=== PATIENT | male | born 2000 | race Caucasian/White ===

== ENCOUNTER 2021-03-20 22:00 | Inpatient (IN) | payer OTHER, MEDICAID, SELFPAY ==
[2021-03-20 22:26] VITALS: BP 141/88; PULSE 77; RESP 18; TEMP 37.1; O2SAT 95; BMI 23.6
--- NOTE | 2021-03-21 00:03 | ED_ITS ---
HPI - Psych General Chief Complaint: Psychiatric Symptoms Stated Complaint: crisis Time Seen by Provider: 03/21/21 00:03 History of Present Illness HPI Narrative: Patient 20 years old hearing voices. Hearing banging sounds. History of schizophrenia. Denies any suicidal homicidal ideations. Patient is sent in for further evaluation. Related Data Allergies Allergy/AdvReac Type Severity Reaction Status Date / Time No Known Allergies Allergy Verified 03/20/21 22:38 [No Known Allergies*] Review of Systems Review of Systems: No fever no chills no chest pain or shortness of breath. No overdose and no alcohol. [facility] Past Medical History Attestation statement: The following information was validated with the patient. Medical History Aggressive behavior Auditory hallucination Disorganized thinking Psychotic disorder Schizophrenia Social History Social History Advance Directives: No Physical Exam Vital Signs: Vital Signs: Last Vital Signs Temp 98.7 F 03/20/21 22:26 Pulse 77 03/20/21 22:26 Resp 18 03/20/21 22:26 BP 141/88 H 03/20/21 22:26 Pulse Ox 95 03/20/21 22:26 Body Mass Index 23.6 Appearance: Alert. Oriented X3. No acute distress. Eyes: Pupils equal, round and reactive to light. ENT: Pharynx normal. Neck: Normal inspection. Neck supple. No lymph nodes noted. No crepitus CVS: Normal heart rate and rhythm. Pulses normal. Normal S1 and S2 Respiratory: No respiratory distress. Breath sounds normal. No Wheezing. No rales Abdomen: Soft and nontender. No rigidity. No distention. good BS x4 Skin: Skin warm and dry. Normal skin color. Normal skin turgor. Extremities: No lower extremity edema. Neurovascular intact to all extremities. No Lacerations. No Rash Neuro: Oriented X 3. No motor deficit. No sensory deficit. Moving all extermities. No slurred speech MDM - Psych MDM Narrative Medical decision making narrative: Medically cleared awaiting crisis evaluation
[2021-03-21 02:00] VITALS: BP 132/55; PULSE 57; RESP 16; TEMP 36.6; O2SAT 96
[2021-03-21 02:01] LABS: Basophils Absolute Auto 0.1 X10*3/uL (0.0-0.2); Basophils Percent Auto 0.9 % (0-2); Eosinophils Absolute Auto 0.1 X10*3/uL (0.0-0.4); Eosinophils Percent Auto 0.9 % (0-4); Hematocrit 42.2 % (42-52); Hemoglobin 14.3 g/dl (14.0-18.0); Imm Gran Abs Auto 0.03 X10*3/uL (0.00-0.03); Imm Gran Pct Auto 0.3 % (0.0-0.4); Lymphocytes Percent Auto 35.5 % (20-40); MANUAL DIFF FLAG NO; Mean Corpuscular HGB Conc 33.9 g/dl (31.0-36.0); Mean Corpuscular Hemoglobin 28.8 pg (27.0-33.0); Mean Corpuscular Volume 85.1 fL (80-98); Mean Platelet Volume 11.6 fL (9.4-12.4); Monocytes Absolute Auto 0.7 X10*3/uL (0.1-1.2); Monocytes Percent Auto 6.3 % (2-11); Neutrophils Absolute Auto 6.3 X10*3/uL (2.0-8.3); Neutrophils Percent Auto 56.1 % (45-73); Platelet Count 288 X10*3/uL (160-400); Red Blood Count 4.96 X10*6/uL (4.60-5.80); White Blood Count 11.2 X10*3/uL (4.8-10.8)
[2021-03-21 02:02] LABS: Glucose Urine UA NEG (NEG); Leukocyte Esterase Urine NEG (NEG); Nitrite Urine NEG (NEG); Specific Gravity - Urine >= 1.030 (1.005-1.025); Urine Blood NEG (NEG); Urine Ketones NEG (NEG); Urine Protein NEG (NEG-TRACE)
[2021-03-21 02:03] LABS: Appearance Urine CLEAR; Color Urine YELLOW
[2021-03-21 02:20] LABS: COVID-19 Test Negative (Negative); IDNOW Serial# 9DD0AD1C
[2021-03-21 02:33] LABS: Amphetamine Screen Urine Not Detected (Not Detect); Barbiturates, Urine Not Detected (Not Detect); Benzodiazepines Screen Urine Not Detected (Not Detect); Cannabinoid Screen Urine POSITIVE (Not Detect); Cocaine Screen Urine Not Detected (Not Detect); Opiate Screen Urine Not Detected (Not Detect); Phencyclidine Screen Urine Not Detected (Not Detect)
[2021-03-21 02:35] LABS: Alanine Aminotransferase 18 U/L (0-40); Albumin Level 4.8 g/dL (3.5-5.0); Alkaline Phosphatase 61 U/L (39-117); Anion Gap 15 (12-20); Aspartate Amino Transferase 22 U/L (5-37); Bilirubin Total 0.5 mg/dL (0.0-1.0); Blood Urea Nitrogen 13 mg/dL (9-16); Carbon Dioxide 25 mmol/L (22-29); Chloride 104 mmol/L (96-108); Creatinine Clr Calc Pharmacy 136.5; Estimated Glomerular Filt Rate > 60; Glucose Random 86 mg/dL (60-115); Potassium 3.9 mmol/L (3.3-5.1); Sodium 140 mmol/L (135-145); Total Protein 7.2 g/dL (6.5-8.0)
[2021-03-21 06:00] VITALS: BP 110/59; PULSE 62; RESP 16; TEMP 36.4; O2SAT 98
--- NOTE | 2021-03-21 06:09 | PC.NURSE ---
This patient presents to the ER at [facility] due to increased aggression at home according to EMS. Pt has remained calm/cooperative since arrival and able to make needs known. Per EMS, pt was seen by [facility] in the community, but then 'ran away from home', where [place] [employer] became involved trying to locate the patient. He then returned home, where his mother called police to have him evaluated by [facility] soon. Pt has hx of schizophrenia, auditory hallucinations, psychotic disorders, and is non-compliant with medications at home. Positive for marijuana on urine toxicology screen with otherwise unremarkable lab results. Plan for N evaluation later today. Section [address], will continue to monitor.
--- NOTE | 2021-03-21 06:27 | PC.NURSE ---
faxed/called to N. Plan to evaluate by N later this morning.
--- NOTE | 2021-03-21 07:51 | PC.NURSE ---
report taken from karla abraham pt here for increased aggression reported by family members, valeria w hx of schizophrenia. pt denies ah per previous shift rn. ambulating around millieu, within behavioral control. awaiting care team whit. sadie.
[2021-03-21 09:41] VITALS: BP 147/81; PULSE 82; RESP 17; TEMP 37.2; O2SAT 97
--- NOTE | 2021-03-21 10:12 | PC.NURSE ---
pt seen by koki bauer, will be sec 12 bed search. continues to pace within millieu, displays some nervous behaviors (wringing corner of kelsy in hand). appears within behavioral control. denies any new c/o.
[2021-03-21] MEDS: Acetaminophen 325 MG TABLET 650 MG PO (12:57)
--- NOTE | 2021-03-21 12:59 | PC.NURSE ---
pt asking for tylenol for headache, tolerating po w/o issue. wctm.
[2021-03-21 17:37] VITALS: BP 128/70; PULSE 98; RESP 17; O2SAT 97
--- NOTE | 2021-03-22 | ECG_ITS ---
Test Reason : MED CLEARANCE Blood Pressure : / mmHG Vent. Rate : 064 BPM Atrial Rate : 064 BPM P-R Int : 154 ms QRS Dur : 110 ms QT Int : 412 ms P-R-T Axes : 051 067 028 degrees QTc Int : 425 ms Normal sinus rhythm Possible Left atrial enlargement Borderline ECG When compared with ECG of 11-OCT-2019 07:32, T wave inversion less evident in Inferior leads Nonspecific T wave abnormality no longer evident in Lateral leads QT has lengthened Referred By: Edith Pryor Electronically Signed By:Shivam Baxter
[2021-03-22 05:26] VITALS: BP 130/68; PULSE 73; RESP 16; TEMP 36.6; O2SAT 99
--- NOTE | 2021-03-22 06:08 | PC.NURSE ---
Patient slept through the night, OOB x 1 for refreshment, no distress observed/reported, VSS, per [facility] patient is on section 12, inpatient Bed search, patient is not any meds at this time, calm and pleasant, will continue to monitor.
--- NOTE | 2021-03-22 06:44 | PC.NURSE ---
Patient's mother called to inquire patient's medication, per mother patient had been off his medication over year and half, pharmacy called, notified that patient was on Resperidone 1 mg at bedtime and Invega Sustenna IM monthly for over year and half ago, patient's psyatrist was Sherrie Tineo
--- NOTE | 2021-03-22 07:19 | PC.NURSE ---
patient appears to remain at rest at present with even unlabored breaths, patient appears in no distress
[2021-03-22 16:15] VITALS: BP 116/66; PULSE 75; TEMP 36.1
--- NOTE | 2021-03-22 23:31 | PC.ADMIT ---
A 20 year old single, white male was [facility] at [facility]15 as a CV following referral from [facility] and [facility]. Pt signed a 3-day notice shortly after arrival to . Pt has two previous psychiatric admissions; pt was admitted to at age 19 years. Pt denies admissions for substances or Etoh. Pt was assessed at [facility] after being taken to hospital by ambulance and police via section 12. [facility] had been called to assess pt in the family home, but pt eloped from family home several times before being found by police. Per pt's family, pt had been decompensating for past week with AH, responding to internal stimulation, bizarre and erratic behavior. Pt had been increasingly aggressive, kicking and banging on swift. A knife was found in pt's room after family photos in home were found with faces scrated out. . Pt slit pillows and broke a TV. Pt reported to this rewriter that there is a lot of chaos in home because he has many siblings; reportedly 9 siblings. Per [facility] report pt blamed the family cat for the scratched photos. Pt has history of treatment for schizophrenia, but currently is not taking medications and has no providers. Pt was calm and cooperative during admission, but tense and guarded. Pt minimized all behaviors that preceded coming to hospital. Pt denied anx/dep, SI/HI, AH/VH. Pt denies Etoh use, says smokes marijuana socially with peers but does not use any other substances. NINO was positive for marijuana. Pt denies medical issues; pt had prolonged QTC in past, EKG done on 03/22/21 was NSR with possible left atrial enlargement, a borderline EKG when compared to 10/11/2019. Nonspecific T wave abnormality no longer evident and QT lengthened. Qywcy-mt-Oizsb done, admitting orders obtained and initial treatment plan done. Pt is resting in room on 15 minute safety checks at this time.
--- NOTE | 2021-03-22 23:56 | PC.NURSE ---
Pt signed 3-day notice shortly after arrival to unit at 1515.
[2021-03-23 00:01] VITALS: BMI 24.4
[2021-03-23 06:00] VITALS: BP 129/60; PULSE 57; RESP 18; TEMP 36.6; O2SAT 99
[2021-03-23 08:36] LABS: Cholesterol 143 mg/dL; HDL Cholesterol 45 mg/dL; LDL Cholesterol Calculated 86 mg/dl; Magnesium 2.2 mg/dL (1.6-2.6); Triglycerides 60 mg/dL
[2021-03-23 08:41] LABS: Estimated Average Glucose 100 mg/dL; Hemoglobin A1c % 5.1 %
[2021-03-23 08:58] LABS: Free T4 (Free Thyroxine) 1.04 ng/dL (0.71-1.85); Thyroid Stimulating Hormone 0.78 uIU/mL (0.32-4.0)
[2021-03-23 09:11] LABS: Folate 14.5 ng/mL (> or = 4.0); Vitamin B12 282 pg/mL (200-900)
--- NOTE | 2021-03-23 14:27 | HO.PSYADMNOT ---
HPI Chief Complaint: SCHIZOPHRENIA Sources of Information: patient interviewed, chart reviewed and crisis/core team assessment reviewed HPI Subjective Notes: Hawkins Warning, Conditional Voluntary and 3 Day Healthcare Proxy: No Guardianship: No Medical Problems Affecting Mental Status: No Narrative: My mom is mad. I was trying to sleep and my brothers were making noise so I got mad. 20 yo male, h/o schizophrenia, off meds for a significant amount of time, admitted for MSE change and behavior change which has frigntenend family and forced a decision that pt will not be able to live at home if he continues to refuse treatment for this illness. Pt reports no issues, just as stated above. Pt to ER with police, decompensating at the home, disorganized, off meds and violent. Care discussed with Carlos Alberto KRAUSE and pt's mother Colleen Flores. Colleen reports pts symptoms are different this time. For the past ~3 months pt has become more agitated-stomping, banging, breaking the TV, angry, stealing things in the home, hoarding items. Most recently, the family was missing a gift of an [employer] knife. They found the knife in pt's room after he had slashed pictures (faces in the pictures), slashed the soft, slashed cereal boxes. 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 The entire family fears him and his anger. Pt has been banging things, he tells family because of the noise but the home is quiet. Pt has been confrontive to his siblings-Colleen reports all nine siblings are very fearful of him, he has been hiding, urinating in the closet when angry with family, leaving the home, walking, picking up cigarette butts, ashes and used tobacco and storing it in his room in Tupperware. Colleen reports sleep, appetite and ADL's are not changed. At baseline, pt is describes as quiet, reserved, easy going, calm. Thus the concern for the significant change. Colleen reports pt was in pt at [facility] and received an injection and was amazingly well . Since the pandemic occurred he has refused the injection and has been in decline. He tells Colleen he hears things in his head and wants them to stop. Colleen reports pt is non-violent by history. Family plans to begin to pursue guardianship and will need assistance. Of note, pt's biological father has schizophrenia and this presentation is very familiar to Colleen. Family knows of no recent known trauma to effect pt's mood or response in this way. Past Psychiatric History: IP: Yakelin-Savanna Williamson OP: CSI Trials: Risperdal, Abilify Medical Evaluation Reviewed: Yes [facility] Medical History (Updated 03/23/21 @ 16:19 by Selina Dudley APRN) Aggressive behavior Auditory hallucination Disorganized thinking Psychotic disorder Schizophrenia Schizophrenia Narrative: Hx of Elbow Injury Family History: Father-Schizophrenia Social History: Born in [place]. Pt has 9 siblings. Pt raised by his mother since age 13. Left school before graduating. Substance History: Denies Trauma History: Denies Diagnostics Vital Signs (24Hr): Vital Signs - 24 hr 03/22/21 16:15 03/23/21 06:00 Temperature 97.0 F 97.9 F Pulse Rate 75 57 Respiratory Rate 18 Blood Pressure 116/66 129/60 Pulse Oximetry 99 Body Mass Index 24.4 Labs Results: 03/21/21 01:50 03/21/21 01:50 Labs: Laboratory Results - last 48 hr 03/23/21 03/23/21 03/23/21 07:46 07:46 07:46 Estimat Average Glucose 100 Hemoglobin A1c % 5.1 Magnesium 2.2 Triglycerides 60 Cholesterol 143 LDL Cholesterol, Calc 86 HDL Cholesterol 45 Vitamin B12 282 Folate 14.5 TSH 0.78 Free T4 1.04 Meds/Allergies Meds Home Medications Acetaminophen (Acetaminophen 325 Mg Tablet) 650 mg PO Q6H PRN PRN Reason: Headache/Pain Mild Scale (1-3) Al Hydroxide/Mg Hydroxide (Magnesium Hydrox/Alum Hydrox 30 Ml Oral.Susp) 30 ml PO Q6H PRN PRN Reason: Heartburn/Nausea Hydroxyzine HCl (Hydroxyzine Hcl 25 Mg Tablet) 25 mg PO BEDTIME PRN PRN Reason: Anxiety Lorazepam (Lorazepam 1 Mg Tablet) 1 mg PO Q4H PRN PRN Reason: anxiety, agitation Magnesium Hydroxide (Milk Of Magnesia 30 Ml Oral.Susp) 30 ml PO DAILY PRN PRN Reason: Constipation Olanzapine (Olanzapine 5 Mg Tablet) 5 mg PO BID PRN PRN Reason: psychosis Trazodone HCl (Trazodone Hcl 50 Mg Tablet) 50 mg PO BEDTIME PRN PRN Reason: Insomnia Allergies Allergies Allergy/AdvReac Type Severity Reaction Status Date / Time No Known Allergies Allergy Verified 03/20/21 22:38 [No Known Allergies*] Mental Status Exam Mental Status Exam Patient Appearance: Appropriate Patient Orientation: Person, Place and Situation Level of Consciousness: Alert Patient Behavior: Guarded, Talkative, Hyperactive, Cooperative, Suspicious, Restless, Wandering, Anxious, Fearful, Resistive to Care, Avoidant, Distractible, Isolative and Poor Eye Contact Mood Description: Calm, Suspicious, Withdrawn, Constricted, Fearful, Anxious, Blunted and Apprehensive Affect Description: Constricted Patient Cognition Impaired: No Ability to Follow Directions: Fair Speech Pattern: Spontaneous Speech, Soft-Spoken and Cofabulation Memory Description: Remote Impaired and Episodic Impaired Hallucinations: Auditory Delusions: Paranoid Ideation and Present Perceptual Disturbances: Derealization Thought Process: Illogical, Distracted and Evasive Thought Content: positive for Flight of Ideas, positive for Thought Blocking, positive for Tangential, positive for Disorganized, positive for Evasive, positive for Suicidal Ideation (denies) and positive for Homicidal Ideation (denies) Depressive Symptoms: Increased Irritability, Isolating-Friends/Family and Difficulty Concentrating Abnormal Motor Activity Signs and Symptoms: Aggression (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 His mother, Colleen reports a significant behavioral change [employer] where he has become more agitated, aggressive, violent and destructive. At this point the family fears him and will not allow him to return to the home unless he is well medicated. Simone reports family is angry as they were making noise while he was attempting to sleep and he responded. Plan: -Simone has signed a three day notice of intent. We discussed HAWKINS warning today. -Labs WNL WBC 11.2 -Per mom, Risperdal was very helpful on last admit. Pt declines all medications, but will order HS Risperdal -Olanzapine prn -Will meet with mother on 03/24 as she will approach the court for guardianship. -Educate, Encourage, [place] building. (2) Acute psychosis: Status: Acute Code(s): F23 - Brief psychotic disorder Patient educated on: medication risk/benefits and therapeutic strategies Informed Consent: does not understand Reason for continued inpatient stay Substantial Risk for: harm to self, harm to others, inability to function and rapid decompensation
[2021-03-23 18:00] VITALS: BP 122/58; PULSE 66; TEMP 36.7
[2021-03-23] MEDS: risperiDONE 1 MG TABLET PO (21:21)
[2021-03-24 06:00] VITALS: BP 97/58; PULSE 63; RESP 16; TEMP 36.6; O2SAT 98
--- NOTE | 2021-03-24 12:44 | HO.PSYCHPN ---
Subjective Subjective Date of Service: 03/24/21 Reason For Visit: SCHIZOPHRENIA Subjective Notes: Conditional Voluntary and 3 Day Healthcare Proxy: No Guardianship: No Medical Problems Affecting Mental Status: No Interim History: Met with pt and mother. 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 Pt reports he did not use a knife to destroy property at home-he believes the cat did this. Discussed schizophrenia, neurobiology, the need for medication and the expected outcome. Discussed pursuit of civil commitment. Pt will consider retraction of TDN. Discussed mother pursuing guardianship on a temporary basis. Pt left the meeting a few times-not angry but highly distracted, returned asking for mom to bring certain foods for him. Agrees to meds. Prefers the DUONG 3 month injection. Will accept Risperdal PO until we have this in place. Medical Certificate completed Medication Compliance: Yes Side effects from medications: No Attending Groups: No Review of Systems Reports behavioral changes Psychiatric: Reports behavioral changes, Reports difficulty concentrating, Reports auditory hallucinations, Reports irritability, Reports mood swings, Reports paranoia, Reports homicidal ideation (denies, however, behaviors BREAK OUT WORKER have family fearful and concerned) and Reports suicidal ideation (denies) Mental Status Exam Mental Status Exam Patient Appearance: Appropriate Patient Orientation: Person and Place Level of Consciousness: Alert Patient Behavior: Dependent, Guarded, Suspicious, Restless, Wandering, Anxious, Fearful, Resistive to Care, Avoidant, Distractible, Isolative and Poor Eye Contact Mood Description: Constricted Affect Description: Constricted Patient Cognition Impaired: No Ability to Follow Directions: Fair Speech Pattern: Difficulty Finding Words, Spontaneous Speech, Soft-Spoken, Cofabulation and Long Pauses Memory Description: Remote Impaired and Episodic Impaired Hallucinations: Auditory and Command Delusions: Paranoid Ideation and Present Perceptual Disturbances: Derealization Thought Process: Illogical, Distracted and Slowed Thinking Thought Content: positive for [place], positive for Circumstantial, positive for Perseveration, positive for Poverty of Content, positive for Preoccupation, positive for Loose Associations, positive for Thought Blocking, positive for Tangential, positive for Suicidal Ideation (denies) and positive for Homicidal Ideation (denies) Depressive Symptoms: Diff. Making Decisions, Increased Irritability, Loss of Int. in Activity, Isolating-Friends/Family, Thoughts of /Suicide (denies) and Difficulty Concentrating Abnormal Motor Activity Signs and Symptoms: Restlessness Judgement: Poor Diagnostics Vital Signs (24Hr): Vital Signs - 24 hr 03/23/21 18:00 03/24/21 06:00 Temperature 98.1 F 97.9 F Pulse Rate 66 63 Respiratory Rate 16 Blood Pressure 122/58 L 97/58 L Pulse Oximetry 98 Body Mass Index 24.4 Labs Results: 03/21/21 01:50 03/21/21 01:50 Labs: Laboratory Results - last 48 hr 03/23/21 03/23/21 03/23/21 07:46 07:46 07:46 Estimat Average Glucose 100 Hemoglobin A1c % 5.1 Magnesium 2.2 Triglycerides 60 Cholesterol 143 LDL Cholesterol, Calc 86 HDL Cholesterol 45 Vitamin B12 282 Folate 14.5 TSH 0.78 Free T4 1.04 Medications Medications Current Medications Generic Name Dose Route Start Last Admin Trade Name Freq PRN Reason Stop Dose Admin Acetaminophen 650 mg 03/22/21 15:10 Acetaminophen 325 Mg Tablet PO Q6H PRN Headache/Pain Mild Scale (1-3) Al Hydroxide/Mg Hydroxide 30 ml 03/22/21 15:10 Magnesium Hydrox/Alum Hydrox 30 Ml Oral.Susp PO Q6H PRN Heartburn/Nausea Hydroxyzine HCl 25 mg 03/22/21 15:10 Hydroxyzine Hcl 25 Mg Tablet PO BEDTIME PRN Anxiety Lorazepam 1 mg 03/22/21 15:29 Lorazepam 1 Mg Tablet PO Q4H PRN anxiety, agitation Magnesium Hydroxide 30 ml 03/22/21 15:10 Milk Of Magnesia 30 Ml Oral.Susp PO DAILY PRN Constipation Olanzapine 5 mg 03/22/21 15:29 Olanzapine 5 Mg Tablet PO BID PRN psychosis Risperidone 1 mg 03/23/21 21:00 03/23/21 21:21 Risperidone 1 Mg Tablet PO 1 mg BEDTIME LUÍS Administration Trazodone HCl 50 mg 03/22/21 15:10 Trazodone Hcl 50 Mg Tablet PO BEDTIME PRN Insomnia Allergies Allergies Allergy/AdvReac Type Severity Reaction Status Date / Time No Known Allergies Allergy Verified 03/20/21 22:38 [No Known Allergies*] Assessment & Plan Assessment & Plan (1) Schizophrenia: Status: Acute Code(s): F20.9 - Schizophrenia, unspecified Assessment and Plan: Simone is a 20 yo male, with a history of schizophrenia, who has been off medications for a significant period of time, partly due to pandemic restrictions. His mother, Colleen reports a significant behavioral change [employer] WORKER where he has become more agitated, aggressive, violent and destructive. At this point the family fears him and will not allow him to return to the home unless he is well medicated. Simone reports family is angry as they were making noise while he was attempting to sleep and he responded. 03/24/21: Family meeting today. Pt to consider retraction of TDN and beginning DUONG-interested in 3 month choices. Mom will file for guardianship. Pending civil commitment filing should pt not agree to a plan of care. Accepting PO Risperdal. Plan: -Simone has signed a three day notice of intent. He is considering retraction -Labs WNL WBC 11.2 -Per mom, Risperdal was very helpful on last admit. Pt accepting po Riserpdal, considering DUONG-asks for 3 month plan -Olanzapine prn -Educate, Encourage, [place] building. (2) Acute psychosis: Status: Acute Code(s): F23 - Brief psychotic disorder Greater than 50% of the session was spent on counseling and/or coordination of care Reason for contiued inpatient stay Substantial Risk for: harm to self, harm to others, inability to function and rapid decompensation
[2021-03-24 18:00] VITALS: BP 129/68; PULSE 104; RESP 16; TEMP 36.6; O2SAT 95
[2021-03-24] MEDS: risperiDONE 1 MG TABLET PO (20:46)
[2021-03-25 06:41] VITALS: BP 120/56; PULSE 60; TEMP 36; O2SAT 97
[2021-03-25 13:38] VITALS: BMI 24.7
--- NOTE | 2021-03-25 16:46 | P.PNPSI_ITS ---
Subjective Subjective Date of Service: 03/25/21 Reason For Visit: SCHIZOPHRENIA Subjective Notes: Conditional Voluntary and 3 Day (Retraction) Healthcare Proxy: No Guardianship: Yes (mom went to court today) Medical Problems Affecting Mental Status: No Interim History: Pt retracted TDN. Pt would like medication to be the three month injectable Trinza. Discussed with pt and mother the steps we would need to take to acheive this-tolerance of PO Risperdal/Invega, Invega Sustenna trial for four (4) months (initially 2 IM's then monthly IM for 4 months) then, if tolerated, Trinza trial q 3 months. Both agree that they would like to proceed. We will change Risperdal to Invega PO 3 mg to begin 03/26/21. Pt pacing much of the day-did approach tw a few times for questions. Mother visited briefly with food for pt however he did not want to meet with her. Pt is clearly responding to internal stimuli and has a decrease of environmental awareness. Review of Systems Reports behavioral changes Psychiatric: Reports behavioral changes, Reports difficulty concentrating, Reports auditory hallucinations, Reports irritability and Reports paranoia Mental Status Exam Mental Status Exam Patient Appearance: Appropriate Patient Orientation: Person, Place, Time and Situation Level of Consciousness: Alert Patient Behavior: Guarded, Cooperative, Suspicious, Restless, Wandering, Anxious, Avoidant, Isolative, Good Eye Contact and Pacing Mood Description: Constricted Affect Description: Constricted Patient Cognition Impaired: Yes Ability to Follow Directions: Fair Speech Pattern: Spontaneous Speech and Soft-Spoken Memory Description: Remote Impaired and Episodic Impaired Hallucinations: Auditory Delusions: Paranoid Ideation and Present Perceptual Disturbances: Derealization Thought Process: Distracted Thought Content: positive for [place], positive for Circumstantial, positive for Preoccupation and positive for Tangential Depressive Symptoms: Increased Irritability and Difficulty Concentrating Abnormal Motor Activity Signs and Symptoms: Restlessness Judgement: Poor Diagnostics Vital Signs (24Hr): Vital Signs - 24 hr 03/24/21 18:00 03/25/21 06:41 Temperature 97.9 F 96.8 F Pulse Rate 104 H 60 Respiratory Rate 16 Blood Pressure 129/68 120/56 L Pulse Oximetry 95 97 Body Mass Index 24.7 Labs Results: 03/21/21 01:50 03/21/21 01:50 Medications Medications Current Medications Generic Name Dose Route Start Last Admin Trade Name Freq PRN Reason Stop Dose Admin Acetaminophen 650 mg 03/22/21 15:10 Acetaminophen 325 Mg Tablet PO Q6H PRN Headache/Pain Mild Scale (1-3) Al Hydroxide/Mg Hydroxide 30 ml 03/22/21 15:10 Magnesium Hydrox/Alum Hydrox 30 Ml Oral.Susp PO Q6H PRN Heartburn/Nausea Hydroxyzine HCl 25 mg 03/22/21 15:10 Hydroxyzine Hcl 25 Mg Tablet PO BEDTIME PRN Anxiety Lorazepam 1 mg 03/22/21 15:29 Lorazepam 1 Mg Tablet PO Q4H PRN anxiety, agitation Magnesium Hydroxide 30 ml 03/22/21 15:10 Milk Of Magnesia 30 Ml Oral.Susp PO DAILY PRN Constipation Olanzapine 5 mg 03/22/21 15:29 Olanzapine 5 Mg Tablet PO BID PRN psychosis Risperidone 2 mg 03/25/21 21:00 Risperidone 2 Mg Tablet PO BEDTIME LUÍS Trazodone HCl 50 mg 03/22/21 15:10 Trazodone Hcl 50 Mg Tablet PO BEDTIME PRN Insomnia Allergies Allergies Allergy/AdvReac Type Severity Reaction Status Date / Time No Known Allergies Allergy Verified 03/20/21 22:38 [No Known Allergies*] Assessment & Plan Assessment & Plan (1) Schizophrenia: Status: Acute Code(s): F20.9 - Schizophrenia, unspecified Assessment and Plan: Simone is a 20 yo male, with a history of schizophrenia, who has been off medications for a significant period of time, partly due to pandemic restrictions. 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 At this point the family fears him and will not allow him to return to the home unless he is well medicated. Simone reports family is angry as they were making noise while he was attempting to sleep and he responded. 03/24/21: Family meeting today. Pt to consider retraction of TDN and beginning DUONG-interested in 3 month choices. Mom will file for guardianship. Pending civil commitment filing should pt not agree to a plan of care. Accepting PO Risperdal. Plan: -Simone has retracted TDN -Labs WNL WBC 11.2 -DC Risperdal. Invega 3 mg a.m. Plan to transition to Sustenna. Pt/Mom aware and agree that he will need to remain on Sustenna for 4 months to be eligible to transtion to 3 month Trinza injection -Olanzapine prn -Educate, Encourage, [place] building. (2) Acute psychosis: Status: Acute Code(s): F23 - Brief psychotic disorder Greater than 50% of the session was spent on counseling and/or coordination of care Reason for contiued inpatient stay Substantial Risk for: harm to self, harm to others, inability to function and rapid decompensation
[2021-03-25 16:50] VITALS: BP 149/71; PULSE 91; TEMP 36.2
[2021-03-26 06:00] VITALS: BP 118/60; PULSE 70; RESP 18; TEMP 35.6; O2SAT 97
[2021-03-26] MEDS: Paliperidone ER 3 MG TAB.ER.24 PO (08:21)
--- NOTE | 2021-03-26 15:51 | HO.PSYCHPN ---
Subjective Subjective Date of Service: 03/26/21 Reason For Visit: SCHIZOPHRENIA Subjective Notes: Conditional Voluntary Healthcare Proxy: No Guardianship: Yes (mom in process of application) Medical Problems Affecting Mental Status: No Interim History: Visable on the unit-pacing. Approached promotion writer x 3 to discuss plan of care, mostly concerning discharge date after injection. Discussed having a few days of PO Invega-if tolerated, will order Sustenna next week (initial two injection over two week period 234 mg on day 1 and 156 mg on day 8 with maintenance dosing starting 4 weeks after second injection. Discussed with pt looking for tolerance of medication, some abatement of sx and family willingness to have him back at home. He verbalized understanding of these goals. Medication Compliance: Yes Side effects from medications: No Attending Groups: No Review of Systems Reports behavioral changes Psychiatric: Reports anxiety, Reports behavioral changes, Reports difficulty concentrating, Reports auditory hallucinations, Reports paranoia and Reports suicidal ideation (denies) Mental Status Exam Mental Status Exam Patient Appearance: Appropriate Patient Orientation: Person, Place, Time and Situation Level of Consciousness: Alert Patient Behavior: Appropriate, Guarded, Cooperative, Suspicious, Anxious, Avoidant, Distractible, Isolative and Poor Eye Contact Mood Description: Constricted Affect Description: Constricted Patient Cognition Impaired: Yes Ability to Follow Directions: Fair Speech Pattern: Perseverating, Difficulty Finding Words, Spontaneous Speech, Soft-Spoken and Long Pauses Memory Description: Episodic Impaired Hallucinations: Auditory Delusions: Paranoid Ideation and Present Perceptual Disturbances: Derealization Thought Process: Distracted Thought Content: positive for Flight [place], positive for Circumstantial, positive for Preoccupation, positive for Tangential, positive for Suicidal Ideation (denies) and positive for Homicidal Ideation (denies) Depressive Symptoms: Increased Anxiety, Diff. Making Decisions, Thoughts of /Suicide (denies) and Difficulty Concentrating Abnormal Motor Activity Signs and Symptoms: Restlessness Judgement: Poor Diagnostics Vital Signs (24Hr): Vital Signs - 24 hr 03/25/21 16:50 03/26/21 06:00 Temperature 97.1 F 96.0 F L Pulse Rate 91 70 Respiratory Rate 18 Blood Pressure 149/71 H 118/60 Pulse Oximetry 97 Body Mass Index 24.7 Labs Results: 03/21/21 01:50 03/21/21 01:50 Medications Medications Current Medications Generic Name Dose Route Start Last Admin Trade Name Freq PRN Reason Stop Dose Admin Acetaminophen 650 mg 03/22/21 15:10 Acetaminophen 325 Mg Tablet PO Q6H PRN Headache/Pain Mild Scale (1-3) Al Hydroxide/Mg Hydroxide 30 ml 03/22/21 15:10 Magnesium Hydrox/Alum Hydrox 30 Ml Oral.Susp PO Q6H PRN Heartburn/Nausea Hydroxyzine HCl 25 mg 03/22/21 15:10 Hydroxyzine Hcl 25 Mg Tablet PO BEDTIME PRN Anxiety Lorazepam 1 mg 03/22/21 15:29 Lorazepam 1 Mg Tablet PO Q4H PRN anxiety, agitation Magnesium Hydroxide 30 ml 03/22/21 15:10 Milk Of Magnesia 30 Ml Oral.Susp PO DAILY PRN Constipation Olanzapine 5 mg 03/22/21 15:29 Olanzapine 5 Mg Tablet PO BID PRN psychosis Paliperidone 3 mg 03/26/21 09:00 03/26/21 08:21 Paliperidone Er 3 Mg Tab.Er.24 PO 3 mg DAILY LUÍS Administration Trazodone HCl 50 mg 03/22/21 15:10 Trazodone Hcl 50 Mg Tablet PO BEDTIME PRN Insomnia Allergies Allergies Allergy/AdvReac Type Severity Reaction Status Date / Time No Known Allergies Allergy Verified 03/20/21 22:38 [No Known Allergies*] Assessment & Plan Assessment & Plan (1) Schizophrenia: Status: Acute Code(s): F20.9 - Schizophrenia, unspecified Assessment and Plan: Simone is a 20 yo male, with a history of schizophrenia, who has been off medications for a significant period of time, partly due to pandemic restrictions. 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 At this point the family fears him and will not allow him to return to the home unless he is well medicated. Simone reports family is angry as they were making noise while he was attempting to sleep and he responded. 03/24/21: Family meeting today. Pt to consider retraction of TDN and beginning DUONG-interested in 3 month choices. Mom will file for guardianship. Pending civil commitment filing should pt not agree to a plan of care. Accepting PO Risperdal. 03/25/21: Continue plan of care. Simone is visable in the milieu and approaches readily to ask questions. 03/26/21: Continue plan of care. Simone is approachable, responding to internal stimuli, continues to have interest and asks questions about plan of care. Mom has initiated the guardianship process. Plan: -Simone has retracted TDN -Labs WNL WBC 11.2 -DC Risperdal. Invega 3 mg a.m. Plan to transition to Sustenna. Pt/Mom aware and agree that he will need to remain on Sustenna for 4 months to be eligible to transtion to 3 month Trinza injection -Olanzapine prn -Educate, Encourage, [place] building. (2) Acute psychosis: Status: Acute Code(s): F23 - Brief psychotic disorder Greater than 50% of the session was spent on counseling and/or coordination of care Reason for contiued inpatient stay Substantial Risk for: harm to self, harm to others, inability to function and rapid decompensation
[2021-03-26 16:58] VITALS: BP 128/65; PULSE 69; RESP 14; TEMP 36.9; O2SAT 96
[2021-03-27 06:00] VITALS: BP 117/56; PULSE 59; RESP 16; TEMP 36.4; O2SAT 98
[2021-03-27] MEDS: Paliperidone ER 3 MG TAB.ER.24 PO (08:18)
[2021-03-27 18:00] VITALS: BP 130/71; PULSE 107
--- NOTE | 2021-03-27 19:03 | P.PNPSI_ITS ---
Subjective Subjective Date of Service: 03/27/21 Reason For Visit: SCHIZOPHRENIA Subjective Notes: Conditional Voluntary Healthcare Proxy: No Guardianship: Yes (pending) Interim History: Showered, visable on the unit. Continues to pace, appears to respond to internal stimuli. Tolerating Invega. Review of Systems Reports behavioral changes Psychiatric: Reports behavioral changes, Reports difficulty concentrating, Reports auditory hallucinations and Reports paranoia Mental Status Exam Mental Status Exam Patient Appearance: Appropriate Patient Orientation: Person, Place, Time and Situation Level of Consciousness: Awake and Alert Patient Behavior: Guarded, Cooperative and Suspicious Mood Description: Constricted Affect Description: Constricted Patient Cognition Impaired: Yes Ability to Follow Directions: Good Speech Pattern: Spontaneous Speech and Soft-Spoken Memory Description: Remote Impaired and Episodic Impaired Hallucinations: Auditory Delusions: Paranoid Ideation and Present Perceptual Disturbances: Derealization Thought Process: Distracted Thought Content: positive for Circumstantial, positive for Perseveration, positive for Preoccupation and positive for Tangential Abnormal Motor Activity Signs and Symptoms: Restlessness Judgement: Poor Diagnostics Vital Signs (24Hr): Vital Signs - 24 hr 03/27/21 06:00 03/27/21 18:00 Temperature 97.6 F Pulse Rate 59 107 H Respiratory Rate 16 Blood Pressure 117/56 L 130/71 Pulse Oximetry 98 Body Mass Index 24.7 Labs Results: 03/21/21 01:50 03/21/21 01:50 Medications Medications Current Medications Generic Name Dose Route Start Last Admin Trade Name Freq PRN Reason Stop Dose Admin Acetaminophen 650 mg 03/22/21 15:10 Acetaminophen 325 Mg Tablet PO Q6H PRN Headache/Pain Mild Scale (1-3) Al Hydroxide/Mg Hydroxide 30 ml 03/22/21 15:10 Magnesium Hydrox/Alum Hydrox 30 Ml Oral.Susp PO Q6H PRN Heartburn/Nausea Hydroxyzine HCl 25 mg 03/22/21 15:10 Hydroxyzine Hcl 25 Mg Tablet PO BEDTIME PRN Anxiety Lorazepam 1 mg 03/22/21 15:29 Lorazepam 1 Mg Tablet PO Q4H PRN anxiety, agitation Magnesium Hydroxide 30 ml 03/22/21 15:10 Milk Of Magnesia 30 Ml Oral.Susp PO DAILY PRN Constipation Olanzapine 5 mg 03/22/21 15:29 Olanzapine 5 Mg Tablet PO BID PRN psychosis Paliperidone 3 mg 03/26/21 09:00 03/27/21 08:18 Paliperidone Er 3 Mg Tab.Er.24 PO 3 mg DAILY LUÍS Administration Trazodone HCl 50 mg 03/22/21 15:10 Trazodone Hcl 50 Mg Tablet PO BEDTIME PRN Insomnia Allergies Allergies Allergy/AdvReac Type Severity Reaction Status Date / Time No Known Allergies Allergy Verified 03/20/21 22:38 [No Known Allergies*] Assessment & Plan Assessment & Plan (1) Schizophrenia: Status: Acute Code(s): F20.9 - Schizophrenia, unspecified Assessment and Plan: Simone is a 20 yo male, with a history of schizophrenia, who has been off medications for a significant period of time, partly due to pandemic restrictions. 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 At this point the family fears him and will not allow him to return to the home unless he is well medicated. Simone reports family is angry as they were making noise while he was attempting to sleep and he responded. 03/24/21: Family meeting today. Pt to consider retraction of TDN and beginning DUONG-interested in 3 month choices. Mom will file for guardianship. Pending civil commitment filing should pt not agree to a plan of care. Accepting PO Risperdal. 03/25/21: Continue plan of care. Simone is visable in the milieu and approaches readily to ask questions. 03/26/21: Continue plan of care. Simone is approachable, responding to internal stimuli, continues to have interest and asks questions about plan of care. Mom has initiated the guardianship process. Plan: -Simone has retracted TDN -Labs WNL WBC 11.2 -DC Risperdal. Invega 3 mg a.m. Plan to transition to Sustenna. Pt/Mom aware and agree that he will need to remain on Sustenna for 4 months to be eligible to transtion to 3 month Trinza injection -Olanzapine prn -Educate, Encourage, [place] building. (2) Acute psychosis: Status: Acute Code(s): F23 - Brief psychotic disorder Greater than 50% of the session was spent on counseling and/or coordination of care Reason for contiued inpatient stay Substantial Risk for: harm to self, harm to others, inability to function and rapid decompensation
[2021-03-28 06:00] VITALS: BP 101/55; PULSE 62; RESP 16; TEMP 36.6; O2SAT 95
[2021-03-28] MEDS: Paliperidone ER 3 MG TAB.ER.24 PO (08:03)
[2021-03-28 17:37] VITALS: BP 116/55; PULSE 81; TEMP 36.3; O2SAT 95
--- NOTE | 2021-03-28 17:54 | P.PNPSI_ITS ---
Subjective Subjective Date of Service: 03/28/21 Reason For Visit: SCHIZOPHRENIA Subjective Notes: Conditional Voluntary Healthcare Proxy: No Guardianship: Yes (pending) Medical Problems Affecting Mental Status: No Interim History: Tolerating Invega, denies side effects. Continues to pace, toda y bouncing a ball. Improved eye contact, some increase in interaction with team, peers. Continues to loos anxious. More approachable today Medication Compliance: Yes Side effects from medications: No Attending Groups: No Review of Systems Reports behavioral changes Psychiatric: Reports behavioral changes and Reports paranoia Mental Status Exam Mental Status Exam Patient Appearance: Appropriate Patient Orientation: Person, Place, Time and Situation Level of Consciousness: Alert Patient Behavior: Appropriate, Guarded, Cooperative, Suspicious, Restless, Anxious, Avoidant and Distractible Mood Description: Withdrawn Affect Description: Withdrawn Patient Cognition Impaired: No Ability to Follow Directions: Good Speech Pattern: Spontaneous Speech Memory Description: Episodic Impaired Hallucinations: Auditory Delusions: Paranoid Ideation and Present Thought Process: Distracted Thought Content: positive for [place], positive for Circumstantial and positive for Suicidal Ideation (denies) Depressive Symptoms: Increased Anxiety and Low Self Esteem Judgement: Poor Diagnostics Vital Signs (24Hr): Vital Signs - 24 hr 03/27/21 18:00 03/28/21 06:00 03/28/21 17:37 Temperature 97.9 F 97.4 F Pulse Rate 107 H 62 81 Respiratory Rate 16 Blood Pressure 130/71 101/55 L 116/55 L Pulse Oximetry 95 95 Body Mass Index 24.7 Labs Results: 03/21/21 01:50 03/21/21 01:50 Medications Medications Current Medications Generic Name Dose Route Start Last Admin Trade Name Kylerq PRN Reason Stop Dose Admin Acetaminophen 650 mg 03/22/21 15:10 Acetaminophen 325 Mg Tablet PO Q6H PRN Headache/Pain Mild Scale (1-3) Al Hydroxide/Mg Hydroxide 30 ml 03/22/21 15:10 Magnesium Hydrox/Alum Hydrox 30 Ml Oral.Susp PO Q6H PRN Heartburn/Nausea Hydroxyzine HCl 25 mg 03/22/21 15:10 Hydroxyzine Hcl 25 Mg Tablet PO BEDTIME PRN Anxiety Lorazepam 1 mg 03/22/21 15:29 Lorazepam 1 Mg Tablet PO Q4H PRN anxiety, agitation Magnesium Hydroxide 30 ml 03/22/21 15:10 Milk Of Magnesia 30 Ml Oral.Susp PO DAILY PRN Constipation Olanzapine 5 mg 03/22/21 15:29 Olanzapine 5 Mg Tablet PO BID PRN psychosis Paliperidone 3 mg 03/26/21 09:00 03/28/21 08:03 Paliperidone Er 3 Mg Tab.Er.24 PO 3 mg DAILY LUÍS Administration Trazodone HCl 50 mg 03/22/21 15:10 Trazodone Hcl 50 Mg Tablet PO BEDTIME PRN Insomnia Allergies Allergies Allergy/AdvReac Type Severity Reaction Status Date / Time No Known Allergies Allergy Verified 03/20/21 22:38 [No Known Allergies*] Assessment & Plan Assessment & Plan (1) Schizophrenia: Status: Acute Code(s): F20.9 - Schizophrenia, unspecified Assessment and Plan: Simoen is a 20 yo male, with a history of schizophrenia, who has been off medications for a significant period of time, partly due to pandemic r estrictions. 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 At this point the family fears him and will not allow him to return to the home unless he is well medicated. Simone reports family is angry as they were making noise while he was attempting to sleep and he responded. 03/24/21: Family meeting today. Pt to consider retraction of TDN and beginning DUONG-interested in 3 month choices. Mom will file for guardianship. Pending civil commitment filing should pt not agree to a plan of care. Accepting PO Risperdal. 03/25/21: Continue plan of care. Simone is visable in the milieu and approaches readily to ask questions. 03/26/21: Continue plan of care. Simone is approachable, responding to internal stimuli, continues to have interest and asks questions about plan of care. Mom has initiated the guardianship process. Plan: -Simone has retracted TDN -Labs WNL WBC 11.2 -DC Risperdal. Invega 3 mg a.m. Plan to transition to Sustenna. Pt/Mom aware and agree that he will need to remain on Sustenna for 4 months to be eligible to transtion to 3 month Trinza injection -Olanzapine prn -Educate, Encourage, [place] building. (2) Acute psychosis: Status: Acute Code(s): F23 - Brief psychotic disorder Greater than 50% of the session was spent on counseling and/or coordination of care Reason for contiued inpatient stay Substantial Risk for: harm to self, harm to others, inability to function and rapid decompensation
[2021-03-29 06:00] VITALS: BP 120/59; PULSE 56; RESP 14; TEMP 36.7; O2SAT 99
[2021-03-29] MEDS: Paliperidone ER 3 MG TAB.ER.24 PO (08:35)
--- NOTE | 2021-03-29 12:31 | HO.PSYCHPN ---
Subjective Subjective Date of Service: 03/29/21 Reason For Visit: SCHIZOPHRENIA Interim History: pt seen shortly after he showering, appeared well-related. denied any questions or concerns. stated everything was going well for him currently and he has no problems. per staff, pt has been active and appropriate on the unit. he is guarded and avoidant. isolative, walking the halls. slept most of the overnight shift. Mental Status Exam Mental Status Exam Narrative: appropriately dressed and groomed. cooperative, no PMA/PMR. speech nml in amount, rate, loudness, prosody, latency. thoughts linear and logical in brief interview. affect constricted, appropriate to circumstance, non-labile. no SI/HI/AVH expressed. Diagnostics Vital Signs (24Hr): Vital Signs - 24 hr 03/28/21 17:37 03/29/21 06:00 Temperature 97.4 F 98.1 F Pulse Rate 81 56 Respiratory Rate 14 Blood Pressure 116/55 L 120/59 L Pulse Oximetry 95 99 Body Mass Index 24.7 Labs Results: 03/21/21 01:50 03/21/21 01:50 Medications Medications Current Medications Generic Name Dose Route Start Last Admin Trade Name Freq PRN Reason Stop Dose Admin Acetaminophen 650 mg 03/22/21 15:10 Acetaminophen 325 Mg Tablet PO Q6H PRN Headache/Pain Mild Scale (1-3) Al Hydroxide/Mg Hydroxide 30 ml 03/22/21 15:10 Magnesium Hydrox/Alum Hydrox 30 Ml Oral.Susp PO Q6H PRN Heartburn/Nausea Hydroxyzine HCl 25 mg 03/22/21 15:10 Hydroxyzine Hcl 25 Mg Tablet PO BEDTIME PRN Anxiety Lorazepam 1 mg 03/22/21 15:29 Lorazepam 1 Mg Tablet PO Q4H PRN anxiety, agitation Magnesium Hydroxide 30 ml 03/22/21 15:10 Milk Of Magnesia 30 Ml Oral.Susp PO DAILY PRN Constipation Olanzapine 5 mg 03/22/21 15:29 Olanzapine 5 Mg Tablet PO BID PRN psychosis Paliperidone 3 mg 03/26/21 09:00 03/29/21 08:35 Paliperidone Er 3 Mg Tab.Er.24 PO 3 mg DAILY LUÍS Administration Trazodone HCl 50 mg 03/22/21 15:10 Trazodone Hcl 50 Mg Tablet PO BEDTIME PRN Insomnia Allergies Allergies Allergy/AdvReac Type Severity Reaction Status Date / Time No Known Allergies Allergy Verified 03/20/21 22:38 [No Known Allergies*] Assessment & Plan Assessment & Plan (1) Schizophrenia: Status: Acute Code(s): F20.9 - Schizophrenia, unspecified Assessment and Plan: Simone is a 20 yo male, with a history of schizophrenia, who has been off medications for a significant period of time, partly due to pandemic restrictions. 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 At this point the family fears him and will not allow him to return to the home unless he is well medicated. Simone reports family is angry as they were making noise while he was attempting to sleep and he responded. 03/24/21: Family meeting today. Pt to consider retraction of TDN and beginning DUONG-interested in 3 month choices. Mom will file for guardianship. Pending civil commitment filing should pt not agree to a plan of care. Accepting PO Risperdal. 03/25/21: Continue plan of care. Simone is visable in the milieu and approaches readily to ask questions. 03/26/21: Continue plan of care. Simone is approachable, responding to internal stimuli, continues to have interest and asks questions about plan of care. Mom has initiated the guardianship process. 03/29/21: no substantial change in presentation. Plan: -Simone has retracted TDN -Labs WNL WBC 11.2 -DC Risperdal. Invega 3 mg a.m. Plan to transition to Sustenna. Pt/Mom aware and agree that he will need to remain on Sustenna for 4 months to be eligible to transtion to 3 month Trinza injection -Olanzapine prn -Educate, Encourage, [place] building. (2) Acute psychosis: Status: Acute Code(s): F23 - Brief psychotic disorder Greater than 50% of the session was spent on counseling and/or coordination of care Reason for contiued inpatient stay Substantial Risk for: harm to others, inability to function and rapid decompensation
[2021-03-29 16:25] VITALS: BP 136/63; PULSE 73; TEMP 36.9
[2021-03-30 06:50] VITALS: BP 106/52; PULSE 70; RESP 16; TEMP 36.1; O2SAT 97
[2021-03-30] MEDS: Paliperidone ER 3 MG TAB.ER.24 PO (08:25)
--- NOTE | 2021-03-30 17:59 | P.PNPSI_ITS ---
Subjective Subjective Date of Service: 03/30/21 Reason For Visit: SCHIZOPHRENIA Subjective Notes: Conditional Voluntary Healthcare Proxy: No Guardianship: Yes (mother is in process) Medical Problems Affecting Mental Status: No Interim History: Simone reports no adverse effects from medication. We discussed beginning Sustenna and he feels ready to do this. Telephone contact with pt's mother who is in agreement as well. Medication Compliance: Yes Side effects from medications: No Attending Groups: No (No, they are stupid.) Review of Systems Reports behavioral changes Psychiatric: Reports anxiety, Reports behavioral changes, Reports difficulty concentrating, Reports auditory hallucinations, Reports irritability, Reports mood swings, Reports paranoia and Reports suicidal ideation (denies) Mental Status Exam Mental Status Exam Patient Appearance: Appropriate Patient Orientation: Person, Place, Time and Situation Level of Consciousness: Alert Patient Behavior: Appropriate, Guarded, Cooperative, Passive, Suspicious, Restless, Wandering, Anxious, Fearful, Avoidant, Distractible, Isolative, Pacing and Poor Eye Contact Mood Description: Suspicious, Withdrawn, Appropriate, Constricted, Fearful, Anxious, Blunted and Apprehensive Affect Description: Constricted Patient Cognition Impaired: No Ability to Follow Directions: Good Speech Pattern: Perseverating, Spontaneous Speech, Soft-Spoken and Long Pauses Memory Description: Remote Impaired and Episodic Impaired Hallucinations: Auditory Delusions: Paranoid Ideation and Present Perceptual Disturbances: Derealization Thought Process: Distracted and Evasive Thought Content: positive for Circumstantial, positive for Perseveration, positive for Preoccupation, positive for Thought Blocking and positive for Evasive Depressive Symptoms: Increased Anxiety, Diff. Making Decisions, Increased Irritability and Difficulty Concentrating Abnormal Motor Activity Signs and Symptoms: Restlessness Judgement: Poor Diagnostics Vital Signs (24Hr): Vital Signs - 24 hr 03/30/21 06:50 Temperature 96.9 F Pulse Rate 70 Respiratory Rate 16 Blood Pressure 106/52 L Pulse Oximetry 97 Body Mass Index 24.7 Labs Results: 03/21/21 01:50 03/21/21 01:50 Medications Medications Current Medications Generic Name Dose Route Start Last Admin Trade Name Freq PRN Reason Stop Dose Admin Acetaminophen 650 mg 03/22/21 15:10 Acetaminophen 325 Mg Tablet PO Q6H PRN Headache/Pain Mild Scale (1-3) Al Hydroxide/Mg Hydroxide 30 ml 03/22/21 15:10 Magnesium Hydrox/Alum Hydrox 30 Ml Oral.Susp PO Q6H PRN Heartburn/Nausea Hydroxyzine HCl 25 mg 03/22/21 15:10 Hydroxyzine Hcl 25 Mg Tablet PO BEDTIME PRN Anxiety Lorazepam 1 mg 03/22/21 15:29 Lorazepam 1 Mg Tablet PO Q4H PRN anxiety, agitation Magnesium Hydroxide 30 ml 03/22/21 15:10 Milk Of Magnesia 30 Ml Oral.Susp PO DAILY PRN Constipation Olanzapine 5 mg 03/22/21 15:29 Olanzapine 5 Mg Tablet PO BID PRN psychosis Paliperidone Palmitate 234 mg 03/31/21 08:00 Paliperidone Palmitate 234 Mg/1.5 Ml Syringe IM 03/31/21 08:01 ONCE ONE Paliperidone Palmitate 156 mg 04/08/21 08:00 Paliperidone Palmitate 156 Mg/Ml Syringe IM 04/08/21 08:01 ONCE ONE Trazodone HCl 50 mg 03/22/21 15:10 Trazodone Hcl 50 Mg Tablet PO BEDTIME PRN Insomnia Allergies Allergies Allergy/AdvReac Type Severity Reaction Status Date / Time No Known Allergies Allergy Verified 03/20/21 22:38 [No Known Allergies*] Assessment & Plan Assessment & Plan (1) Schizophrenia: Status: Acute Code(s): F20.9 - Schizophrenia, unspecified Assessment and Plan: Simone is a 20 yo male, with a history of schizophrenia, who has been off medications for a significant period of time, partly due to pandemic restrictions. 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 At this point the family fears him and will not allow him to return to the home unless he is well medicated. Simone reports family is angry as they were making noise while he was attempting to sleep and he responded. 03/24/21: Family meeting today. Pt to consider retraction of TDN and beginning DUONG-interested in 3 month choices. Mom will file for guardianship. Pending civil commitment filing should pt not agree to a plan of care. Accepting PO Risperdal. 03/25/21: Continue plan of care. Simone is visable in the milieu and approaches readily to ask questions. 03/26/21: Continue plan of care. Simone is approachable, responding to internal stimuli, continues to have interest and asks questions about plan of care. Mom has initiated the guardianship process. 03/29/21: no substantial change in presentation. 03/30/21: Tolerating medications. Will begin Invega Sustenna 234 mg on 03/31. Pt and mother agree. Plan: -Simone has retracted TDN -Labs WNL WBC 11.2 -DC Risperdal. Invega 3 mg a.m. Plan to transition to Sustenna. Pt/Mom aware and agree that he will need to remain on Sustenna for 4 months to be eligible to transtion to 3 month Trinza injection -Olanzapine prn -Educate, Encourage, [place] building. (2) Acute psychosis: Status: Acute Code(s): F23 - Brief psychotic disorder Greater than 50% of the session was spent on counseling and/or coordination of care Reason for contiued inpatient stay Substantial Risk for: harm to others, inability to function and rapid decomp ensation
[2021-03-30 20:35] VITALS: BP 135/63; PULSE 97; TEMP 36.7
[2021-03-31] MEDS: Paliperidone Palmitate 234 MG/1.5 ML SYRINGE IM (08:08)
[2021-03-31 08:25] VITALS: BP 130/56; PULSE 64; RESP 14; TEMP 36.5; O2SAT 98
[2021-03-31] MEDS: Acetaminophen 325 MG TABLET 650 MG PO ×2 (10:13→23:47)
--- NOTE | 2021-03-31 17:30 | HO.PSYCHPN ---
Subjective Subjective Date of Service: 03/31/21 Reason For Visit: SCHIZOPHRENIA Subjective Notes: Conditional Voluntary Healthcare Proxy: No Guardianship: Yes (pending) Medical Problems Affecting Mental Status: No Interim History: Simone received Sustenna Injection 1 today. He reports it was painful and asks if they can rotate the site next week for injection 2. States Tylenol prn helped. Declined cold pack. Reflected upon accepting the injection- this is a hard thing to have-I am not like everybody else and that hurts sometimes. I hope this will make me more like everybody else. I want to have fun. Attempted to educate, reassure and support pt in his desicion that this is an attempt to bring life options to him vs the isolation of illness. I want to go home after the second shot. Medication Compliance: Yes Side effects from medications: No Attending Groups: No (believes they are stupid) Review of Systems Reports behavioral changes Psychiatric: Reports anxiety, Reports behavioral changes, Reports difficulty concentrating, Reports auditory hallucinations, Reports irritability, Reports mood swings, Reports paranoia and Reports visual hallucinations Mental Status Exam Mental Status Exam Patient Appearance: Appropriate Patient Orientation: Person, Place and Situation Level of Consciousness: Alert Patient Behavior: Guarded, Talkative, Cooperative, Suspicious, Restless (rested today, less time seen pacing), Anxious, Fearful, Avoidant, Distractible, Isolative and Good Eye Contact Mood Description: Calm, Withdrawn, Constricted, Fearful, Anxious and Apprehensive Affect Description: Constricted Patient Cognition Impaired: No Ability to Follow Directions: Good Speech Pattern: Perseverating, Spontaneous Speech and Soft-Spoken Memory Description: Remote Impaired and Episodic Impaired Hallucinations: Auditory Delusions: Paranoid Ideation and Present Perceptual Disturbances: Derealization Thought Process: Distracted Thought Content: positive for [place], positive for Circumstantial, positive for Goal Oriented, positive for Suicidal Ideation (denies) and positive for Homicidal Ideation (denies) Depressive Symptoms: Increased Anxiety, Increased Irritability and Isolating-Friends/Family Abnormal Motor Activity Signs and Symptoms: Restlessness Judgement: Poor Diagnostics Vital Signs (24Hr): Vital Signs - 24 hr 03/30/21 20:35 03/31/21 08:25 Temperature 98.0 F 97.7 F Pulse Rate 97 64 Respiratory Rate 14 Blood Pressure 135/63 130/56 L Pulse Oximetry 98 Body Mass Index 24.7 Labs Results: 03/21/21 01:50 03/21/21 01:50 Medications Medications Current Medications Generic Name Dose Route Start Last Admin Trade Name Freq PRN Reason Stop Dose Admin Acetaminophen 650 mg 03/22/21 15:10 03/31/21 10:13 Acetaminophen 325 Mg Tablet PO 650 mg Q6H PRN Administration Headache/Pain Mild Scale (1-3) Al Hydroxide/Mg Hydroxide 30 ml 03/22/21 15:10 Magnesium Hydrox/Alum Hydrox 30 Ml Oral.Susp PO Q6H PRN Heartburn/Nausea Hydroxyzine HCl 25 mg 03/22/21 15:10 Hydroxyzine Hcl 25 Mg Tablet PO BEDTIME PRN Anxiety Lorazepam 1 mg 03/22/21 15:29 Lorazepam 1 Mg Tablet PO Q4H PRN anxiety, agitation Magnesium Hydroxide 30 ml 03/22/21 15:10 Milk Of Magnesia 30 Ml Oral.Susp PO DAILY PRN Constipation Olanzapine 5 mg 03/22/21 15:29 Olanzapine 5 Mg Tablet PO BID PRN psychosis Paliperidone Palmitate 156 mg 04/08/21 08:00 Paliperidone Palmitate 156 Mg/Ml Syringe IM 04/08/21 08:01 ONCE ONE Trazodone HCl 50 mg 03/22/21 15:10 Trazodone Hcl 50 Mg Tablet PO BEDTIME PRN Insomnia Allergies Allergies Allergy/AdvReac Type Severity Reaction Status Date / Time No Known Allergies Allergy Verified 03/20/21 22:38 [No Known Allergies*] Assessment & Plan Assessment & Plan (1) Schizophrenia: Status: Acute Code(s): F20.9 - Schizophrenia, unspecified Assessment and Plan: Simone is a 20 yo male, with a history of schizophrenia, who has been off medications for a significant period of time, partly due to pandemic restrictions. 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 At this point the family fears him and will not allow him to return to the home unless he is well medicated. Simone reports family is angry as they were making noise while he was attempting to sleep and he responded. 03/24/21: Family meeting today. Pt to consider retraction of TDN and beginning DUONG-interested in 3 month choices. Mom will file for guardianship. Pending civil commitment filing should pt not agree to a plan of care. Accepting PO Risperdal. 03/25/21: Continue plan of care. Simone is visable in the milieu and approaches readily to ask questions. 03/26/21: Continue plan of care. Simone is approachable, responding to internal stimuli, continues to have interest and asks questions about plan of care. Mom has initiated the guardianship process. 03/29/21: no substantial change in presentation. 03/30/21: Tolerating medications. Will begin Invega Sustenna 234 mg on 03/31. Pt and mother agree. 03/31/21: Sustenna received. Tolerating dosing thus far. Plan: -DC Risperdal. Invega 3 mg a.m. Plan to transition to Sustenna. Pt/Mom aware and agree that he will need to remain on Sustenna for 4 months to be eligible to transtion to 3 month Trinza injection -Olanzapine prn -Educate, Encourage, [place] building. (2) Acute psychosis: Status: Acute Code(s): F23 - Brief psychotic disorder Greater than 50% of the session was spent on counseling and/or coordination of care Reason for contiued inpatient stay Substantial Risk for: harm to self, harm to others, inability to function and rapid decompensation
[2021-03-31 18:00] VITALS: BP 126/74; PULSE 74; RESP 16; TEMP 36.1
[2021-04-01 06:00] VITALS: BP 132/68; PULSE 99; TEMP 36.3; O2SAT 97
[2021-04-01 07:00] VITALS: BMI 25.2
--- NOTE | 2021-04-01 12:00 | ECG_ITS ---
Test Reason : DUONG USE Blood Pressure : / mmHG Vent. Rate : 065 BPM Atrial Rate : 065 BPM P-R Int : 168 ms QRS Dur : 116 ms QT Int : 398 ms P-R-T Axes : 048 062 016 degrees QTc Int : 413 ms Normal sinus rhythm Normal ECG When compared with ECG of 22-MAR-2021 13:23, No significant change was found Referred By: Selina Dudley Electronically Signed By:BOONE JAMES MD
--- NOTE | 2021-04-01 12:12 | P.PNPSI_ITS ---
Subjective Subjective Date of Service: 04/01/21 Reason For Visit: SCHIZOPHRENIA Subjective Notes: Conditional Voluntary Healthcare Proxy: No Guardianship: Yes (in process) Medical Problems Affecting Mental Status: No Interim History: Continues with pain at injection site. Using prn Tylenol. Asking about second injection and options for site placement. Medication Compliance: Yes Side effects from medications: Yes (injection site soreness-states by hx it is sore for 3-4 days.) Attending Groups: No Review of Systems Reports behavioral changes Psychiatric: Reports behavioral changes, Reports homicidal ideation (denies) and Reports suicidal ideation (denies) Mental Status Exam Mental Status Exam Patient Appearance: Appropriate Patient Orientation: Person, Place, Time and Situation Level of Consciousness: Alert Patient Behavior: Appropriate, Guarded, Talkative, Cooperative, Suspicious, Anxious and Good Eye Contact Mood Description: Withdrawn and Anxious Affect Description: Anxious Patient Cognition Impaired: Yes Ability to Follow Directions: Good Speech Pattern: Spontaneous Speech and Soft-Spoken Memory Description: Episodic Impaired Hallucinations: Auditory Delusions: Paranoid Ideation Thought Process: Distracted Thought Content: positive for Circumstantial, positive for Perseveration, positive for Thought Blocking and positive for Suicidal Ideation (denies) Depressive Symptoms: Increased Anxiety and Difficulty Concentrating Judgement: Poor Diagnostics Vital Signs (24Hr): Vital Signs - 24 hr 03/31/21 18:00 04/01/21 06:00 Temperature 97 F 97.3 F Pulse Rate 74 99 Respiratory Rate 16 Blood Pressure 126/74 132/68 Pulse Oximetry 97 Body Mass Index 25.2 Labs Results: 03/21/21 01:50 03/21/21 01:50 Medications Medications Current Medications Generic Name Dose Route Start Last Admin Trade Name Kylerq PRN Reason Stop Dose Admin Acetaminophen 650 mg 03/22/21 15:10 03/31/21 23:47 Acetaminophen 325 Mg Tablet PO 650 mg Q6H PRN Administration Headache/Pain Mild Scale (1-3) Al Hydroxide/Mg Hydroxide 30 ml 03/22/21 15:10 Magnesium Hydrox/Alum Hydrox 30 Ml Oral.Susp PO Q6H PRN Heartburn/Nausea Hydroxyzine HCl 25 mg 03/22/21 15:10 Hydroxyzine Hcl 25 Mg Tablet PO BEDTIME PRN Anxiety Lorazepam 1 mg 03/22/21 15:29 Lorazepam 1 Mg Tablet PO Q4H PRN anxiety, agitation Magnesium Hydroxide 30 ml 03/22/21 15:10 Milk Of Magnesia 30 Ml Oral.Susp PO DAILY PRN Constipation Olanzapine 5 mg 03/22/21 15:29 Olanzapine 5 Mg Tablet PO BID PRN psychosis Paliperidone Palmitate 156 mg 04/08/21 08:00 Paliperidone Palmitate 156 Mg/Ml Syringe IM 04/08/21 08:01 ONCE ONE Trazodone HCl 50 mg 03/22/21 15:10 Trazodone Hcl 50 Mg Tablet PO BEDTIME PRN Insomnia Allergies Allergies Allergy/AdvReac Type Severity Reaction Status Date / Time No Known Allergies Allergy Verified 03/20/21 22:38 [No Known Allergies*] Assessment & Plan Assessment & Plan (1) Schizophrenia: Status: Acute Code(s): F20.9 - Schizophrenia, unspecified Assessment and Plan: Simone is a 20 yo male, with a history of schizophrenia, who has been off medications for a significant period of time, partly due to pandemic restrictions. 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 At this point the family fears him and will not allow him to return to the home unless he is well medicated. Simone reports family is angry as they were making noise while he was attempting to sleep and he responded. 03/24/21: Family meeting today. Pt to consider retraction of TDN and beginning DUONG-interested in 3 month choices. Mom will file for guardianship. Pending civil commitment filing should pt not agree to a plan of care. Accepting PO Risperdal. 03/25/21: Continue plan of care. Simone is visable in the milieu and approaches readily to ask questions. 03/26/21: Continue plan of care. Simone is approachable, responding to internal stimuli, continues to have interest and asks questions about plan of care. Mom has initiated the guardianship process. 03/29/21: no substantial change in presentation. 03/30/21: Tolerating medications. Will begin Invega Sustenna 234 mg on 03/31. Pt and mother agree. 03/31/21: Sustenna received. Tolerating dosing thus far. 04/01/21: Injection site pain-using Tylenol prn. Asking about second injection and discharge. Plan: -DC Risperdal. Invega 3 mg a.m. Plan to transition to Sustenna. Pt/Mom aware and agree that he will need to remain on Sustenna for 4 months to be eligible to transtion to 3 month Trinza injection -Olanzapine prn -Educate, Encourage, [place] building. (2) Acute psychosis: Status: Acute Code(s): F23 - Brief psychotic disorder Greater than 50% of the session was spent on counseling and/or coordination of care Reason for contiued inpatient stay Substantial Risk for: harm to others, inability to function and rapid decompensation
[2021-04-01 16:32] VITALS: BP 133/61; PULSE 106; RESP 18; TEMP 36.3; O2SAT 96
[2021-04-01] MEDS: Acetaminophen 325 MG TABLET 650 MG PO (18:54)
[2021-04-02 06:44] VITALS: BP 124/63; PULSE 72; RESP 16; TEMP 36.8; O2SAT 98
[2021-04-02] MEDS: Ibuprofen 600 MG TABLET PO (12:57)
--- NOTE | 2021-04-02 17:36 | P.PNPSI_ITS ---
Subjective Subjective Date of Service: 04/02/21 Reason For Visit: SCHIZOPHRENIA Subjective Notes: Conditional Voluntary Healthcare Proxy: No Guardianship: No Medical Problems Affecting Mental Status: No Interim History: Denies adverse SE from injection except to report site discomfort. Ibuprofen ordered. Asked pt if he would like to discuss diagnosis, treatment and ask questions. He declined and instead told me of a new menu item at [employer] he was going to try after he saw this on TV. Spends time in milieu but is isolative, pacing, and not too interactive. He does concur that there is a component of him feeling shy around others. Continues to be perplexed about why family was so upset regarding his behavior prior to admission- It is so loud there, I did not think they would even notice. Medication Compliance: Yes Side effects from medications: Yes (injection site tenderness) Attending Groups: No Review of Systems Reports behavioral changes Psychiatric: Reports behavioral changes, Reports difficulty concentrating, Reports mood swings, Reports homicidal ideation (denies) and Reports suicidal ideation (denies) Mental Status Exam Mental Status Exam Patient Appearance: Appropriate Patient Orientation: Person, Place, Time and Situation Level of Consciousness: Alert Patient Behavior: Appropriate, Guarded, Talkative, Suspicious and Good Eye Contact Mood Description: Constricted Affect Description: Constricted Patient Cognition Impaired: No Ability to Follow Directions: Good Speech Pattern: Spontaneous Speech Memory Description: Episodic Impaired Hallucinations: Auditory Delusions: Paranoid Ideation and Present Perceptual Disturbances: Derealization Thought Process: Distracted Thought Content: positive for Thought Blocking, positive for Suicidal Ideation (denies) and positive for Homicidal Ideation (denies) Depressive Symptoms: Diff. Making Decisions, Isolating-Friends/Family, Thoughts of /Suicide (denies) and Difficulty Concentrating Abnormal Motor Activity Signs and Symptoms: Restlessness Judgement: Poor Diagnostics Vital Signs (24Hr): Vital Signs - 24 hr 04/02/21 06:44 Temperature 98.2 F Pulse Rate 72 Respiratory Rate 16 Blood Pressure 124/63 Pulse Oximetry 98 Body Mass Index 25.2 Labs Results: 03/21/21 01:50 03/21/21 01:50 Medications Medications Current Medications Generic Name Dose Route Start Last Admin Trade Name Freq PRN Reason Stop Dose Admin Acetaminophen 650 mg 03/22/21 15:10 04/01/21 18:54 Acetaminophen 325 Mg Tablet PO 650 mg Q6H PRN Administration Headache/Pain Mild Scale (1-3) Al Hydroxide/Mg Hydroxide 30 ml 03/22/21 15:10 Magnesium Hydrox/Alum Hydrox 30 Ml Oral.Susp PO Q6H PRN Heartburn/Nausea Hydroxyzine HCl 25 mg 03/22/21 15:10 Hydroxyzine Hcl 25 Mg Tablet PO BEDTIME PRN Anxiety Ibuprofen 600 mg 04/02/21 09:58 04/02/21 12:57 Ibuprofen 600 Mg Tablet PO 600 mg TIDWM PRN Administration pain Lorazepam 1 mg 03/22/21 15:29 Lorazepam 1 Mg Tablet PO Q4H PRN anxiety, agitation Magnesium Hydroxide 30 ml 03/22/21 15:10 Milk Of Magnesia 30 Ml Oral.Susp PO DAILY PRN Constipation Olanzapine 5 mg 03/22/21 15:29 Olanzapine 5 Mg Tablet PO BID PRN psychosis Paliperidone Palmitate 156 mg 04/08/21 08:00 Paliperidone Palmitate 156 Mg/Ml Syringe IM 04/08/21 08:01 ONCE ONE Trazodone HCl 50 mg 03/22/21 15:10 Trazodone Hcl 50 Mg Tablet PO BEDTIME PRN Insomnia Allergies Allergies Allergy/AdvReac Type Severity Reaction Status Date / Time No Known Allergies Allergy Verified 03/20/21 22:38 [No Known Allergies*] Assessment & Plan Assessment & Plan (1) Schizophrenia: Status: Acute Code(s): F20.9 - Schizophrenia, unspecified Assessment and Plan: Simone is a 20 yo male, with a history of schizophrenia, who has been off medications for a significant period of time, partly due to pandemic res trictions. 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 At this point the family fears him and will not allow him to return to the home unless he is well medicated. Simone reports family is angry as they were making noise while he was attempting to sleep and he responded. 03/24/21: Family meeting today. Pt to consider retraction of TDN and beginning DUONG-interested in 3 month choices. Mom will file for guardianship. Pending civil commitment filing should pt not agree to a plan of care. Accepting PO Risperdal. 03/25/21: Continue plan of care. Simone is visable in the milieu and approaches readily to ask questions. 03/26/21: Continue plan of care. Simone is approachable, responding to internal stimuli, continues to have interest and asks questions about plan of care. Mom has initiated the guardianship process. 03/29/21: no substantial change in presentation. 03/30/21: Tolerating medications. Will begin Invega Sustenna 234 mg on 03/31. Pt and mother agree. 03/31/21: Sustenna received. Tolerating dosing thus far. 04/01/21: Injection site pain-using Tylenol prn. Asking about second injection and discharge. 04/02/21: Continue plan of care. Plan: -DC Risperdal. Invega 3 mg a.m. Plan to transition to Sustenna. Pt/Mom aware and agree that he will need to remain on Sustenna for 4 months to be eligible to tra nstion to 3 month Trinza injection -Olanzapine prn -Educate, Encourage, [place] building. (2) Acute psychosis: Status: Acute Code(s): F23 - Brief psychotic disorder Greater than 50% of the session was spent on counseling and/or coordination of care Reason for contiued inpatient stay Substantial Risk for: harm to others, inability to function and rapid decompensation
[2021-04-02 18:50] VITALS: BP 124/72; PULSE 95; TEMP 36.6
[2021-04-03 06:00] VITALS: BP 125/63; PULSE 110; RESP 16; TEMP 36.4
--- NOTE | 2021-04-03 15:12 | P.PNPSI_ITS ---
Subjective Subjective Date of Service: 04/03/21 Reason For Visit: SCHIZOPHRENIA Subjective Notes: Conditional Voluntary Interim History: aware of admission circumstances. Appears shy and reserved. Likely negative symptoms. Reports that at home he kicked the wall, which led to admission. Reports he had been hearing things upstairs, but denied hallucinations. Reports he feels good but he also feels bored by discharge. denied depression. Denied feeling paranoid. Denied SI. Regarding long-acting injectable, reports that his arm pain is improving. Review of Systems Review of Systems Unremarkable Mental Status Exam Mental Status Exam Narrative: pleasant and engaged with interview. Casually dressed with fair hygiene. Does have a flat affect. Appears concrete. Denied being depressed. Denied SI or HI. Denies hallucinating or feeling paranoid. Insight and judgment does appear limited given patient's understanding of recent concerns and treatment planning Diagnostics Vital Signs (24Hr): Vital Signs - 24 hr 04/02/21 18:50 04/03/21 06:00 Temperature 97.8 F 97.6 F Pulse Rate 95 110 H Respiratory Rate 16 Blood Pressure 124/72 125/63 Body Mass Index 25.2 Labs Results: 03/21/21 01:50 03/21/21 01:50 Medications Medications Current Medications Generic Name Dose Route Start Last Admin Trade Name Freq PRN Reason Stop Dose Admin Acetaminophen 650 mg 03/22/21 15:10 04/01/21 18:54 Acetaminophen 325 Mg Tablet PO 650 mg Q6H PRN Administration Headache/Pain Mild Scale (1-3) Al Hydroxide/Mg Hydroxide 30 ml 03/22/21 15:10 Magnesium Hydrox/Alum Hydrox 30 Ml Oral.Susp PO Q6H PRN Heartburn/Nausea Hydroxyzine HCl 25 mg 03/22/21 15:10 Hydroxyzine Hcl 25 Mg Tablet PO BEDTIME PRN Anxiety Ibuprofen 600 mg 04/02/21 09:58 04/02/21 12:57 Ibuprofen 600 Mg Tablet PO 600 mg TIDWM PRN Administration pain Lorazepam 1 mg 03/22/21 15:29 Lorazepam 1 Mg Tablet PO Q4H PRN anxiety, agitation Magnesium Hydroxide 30 ml 03/22/21 15:10 Milk Of Magnesia 30 Ml Oral.Susp PO DAILY PRN Constipation Olanzapine 5 mg 03/22/21 15:29 Olanzapine 5 Mg Tablet PO BID PRN psychosis Paliperidone Palmitate 156 mg 04/08/21 08:00 Paliperidone Palmitate 156 Mg/Ml Syringe IM 04/08/21 08:01 ONCE ONE Trazodone HCl 50 mg 03/22/21 15:10 Trazodone Hcl 50 Mg Tablet PO BEDTIME PRN Insomnia Allergies Allergies Allergy/AdvReac Type Severity Reaction Status Date / Time No Known Allergies Allergy Verified 03/20/21 22:38 [No Known Allergies*] Assessment & Plan Assessment & Plan (1) Schizophrenia: Status: Acute Code(s): F20.9 - Schizophrenia, unspecified Assessment and Plan: Simone is a 20 yo male, with a history of schizophrenia, who has been off medications for a significant period of time, partly due to pandemic restrictions. 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 At this point the family fears him and will not allow him to return to the home unless he is well medicated. Simone reports family is angry as they were making noise while he was attempting to sleep and he responded. 03/24/21: Family meeting today. Pt to consider retraction of TDN and beginning DUONG-interested in 3 month choices. Mom will file for guardianship. Pending civil commitment filing should pt not agree to a plan of care. Accepting PO Risperdal. 03/25/21: Continue plan of care. Simone is visable in the milieu and approaches readily to ask questions. 03/26/21: Continue plan of care. Simone is approachable, responding to internal stimuli, continues to have interest and asks questions about plan of care. Mom has initiated the guardianship process. 03/29/21: no substantial change in presentation. 03/30/21: Tolerating medications. Will begin Invega Sustenna 234 mg on 03/31. Pt and mother agree. 03/31/21: Sustenna received. Tolerating dosing thus far. 04/01/21: Injection site pain-using Tylenol prn. Asking about second injection and discharge. 04/02/21: Continue plan of care. 04/03/2021: No changes to the primary teams treatment plan Plan: -DC Risperdal. Invega 3 mg a.m. Plan to transition to Sustenna. Pt/Mom aware and agree that he will need to remain on Sustenna for 4 months to be eligible to transtion to 3 month Trinza injection -Olanzapine prn -Educate, Encourage, [place] building. (2) Acute psychosis: Status: Acute Code(s): F23 - Brief psychotic disorder Greater than 50% of the session was spent on counseling and/or coordination of care Reason for contiued inpatient stay Substantial Risk for: harm to others, inability to function and rapid decompensation
[2021-04-03 16:55] VITALS: BP 126/57; PULSE 94; TEMP 36.4
[2021-04-04 06:00] VITALS: BP 129/67; PULSE 99; RESP 18; TEMP 35.9; O2SAT 99
--- NOTE | 2021-04-04 15:34 | P.PNPSI_ITS ---
Subjective Subjective Date of Service: 04/04/21 Reason For Visit: SCHIZOPHRENIA Interim History: Appears shy and reserved. Likely negative symptoms. Reports that at home he kicked the wall, which led to admission- Did ask about reports of other sports coach or instructor being cut up with a knife and pictures being altered. He is adamant he did not do this and does not understand why anyone would report such things. Reports he feels good but he also feels bored by discharge. denied depression. Denied feeling paranoid. Denied SI. Arm pain has resolved. Review of Systems Review of Systems Unremarkable Reports behavioral changes Psychiatric: Reports anxiety, Reports behavioral changes, Reports difficulty concentrating, Reports auditory hallucinations, Reports irritability, Reports mood swings, Reports paranoia, Reports visual hallucinations, Reports hallucinations, Reports homicidal ideation (denies) and Reports suicidal ideation (denies) Mental Status Exam Mental Status Exam Narrative: pleasant and engaged with interview. Casually dressed with fair hygiene. Does have a flat affect. Appears concrete. Denied being depressed. Denied SI or HI. Denies hallucinating or feeling paranoid. Insight and judgment does appear limited given patient's understanding of recent concerns and treatment planning Patient Appearance: Appropriate Patient Orientation: Person, Place, Time and Situation Level of Consciousness: Alert Patient Behavior: Appropriate, Guarded, Talkative, Suspicious and Good Eye Contact Mood Description: Constricted Affect Description: Constricted Patient Cognition Impaired: No Ability to Follow Directions: Good Speech Pattern: Spontaneous Speech Memory Description: Episodic Impaired Diagnostics Vital Signs (24Hr): Vital Signs - 24 hr 04/03/21 16:55 04/04/21 06:00 Temperature 97.6 F 96.7 F L Pulse Rate 94 99 Respiratory Rate 18 Blood Pressure 126/57 L 129/67 Pulse Oximetry 99 Body Mass Index 25.2 Labs Results: 03/21/21 01:50 03/21/21 01:50 Medications Medications Current Medications Generic Name Dose Route Start Last Admin Trade Name Freq PRN Reason Stop Dose Admin Acetaminophen 650 mg 03/22/21 15:10 04/01/21 18:54 Acetaminophen 325 Mg Tablet PO 650 mg Q6H PRN Administration Headache/Pain Mild Scale (1-3) Al Hydroxide/Mg Hydroxide 30 ml 03/22/21 15:10 Magnesium Hydrox/Alum Hydrox 30 Ml Oral.Susp PO Q6H PRN Heartburn/Nausea Hydroxyzine HCl 25 mg 03/22/21 15:10 Hydroxyzine Hcl 25 Mg Tablet PO BEDTIME PRN Anxiety Ibuprofen 600 mg 04/02/21 09:58 04/02/21 12:57 Ibuprofen 600 Mg Tablet PO 600 mg TIDWM PRN Administration pain Lorazepam 1 mg 03/22/21 15:29 Lorazepam 1 Mg Tablet PO Q4H PRN anxiety, agitation Magnesium Hydroxide 30 ml 03/22/21 15:10 Milk Of Magnesia 30 Ml Oral.Susp PO DAILY PRN Constipation Olanzapine 5 mg 03/22/21 15:29 Olanzapine 5 Mg Tablet PO BID PRN psychosis Paliperidone Palmitate 156 mg 04/08/21 08:00 Paliperidone Palmitate 156 Mg/Ml Syringe IM 04/08/21 08:01 ONCE ONE Trazodone HCl 50 mg 03/22/21 15:10 Trazodone Hcl 50 Mg Tablet PO BEDTIME PRN Insomnia Allergies Allergies Allergy/AdvReac Type Severity Reaction Status Date / Time No Known Allergies Allergy Verified 03/20/21 22:38 [No Known Allergies*] Assessment & Plan Assessment & Plan (1) Schizophrenia: Status: Acute Code(s): F20.9 - Schizophrenia, unspecified Assessment and Plan: Simone is a 20 yo male, with a history of schizophrenia, who has been off medications for a significant period of time, partly due to pandemic restrictions. 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 At this point the family fears him and will not allow him to return to the home unless he is well medicated. Simone reports family is angry as they were making noise while he was attempting to sleep and he responded. 03/24/21: Family meeting today. Pt to consider retraction of TDN and beginning DUONG-interested in 3 month choices. Mom will file for guardianship. Pending civil commitment filing should pt not agree to a plan of care. Accepting PO Risperdal. 03/25/21: Continue plan of care. Simone is visable in the milieu and approaches re adily to ask questions. 03/26/21: Continue plan of care. Simone is approachable, responding to internal stimuli, continues to have interest and asks questions about plan of care. Mom has initiated the guardianship process. 03/29/21: no substantial change in presentation. 03/30/21: Tolerating medications. Will begin Invega Sustenna 234 mg on 03/31. Pt and mother agree. 03/31/21: Sustenna received. Tolerating dosing thus far. 04/01/21: Injection site pain-using Tylenol prn. Asking about second injection and discharge. 04/02/21: Continue plan of care. 04/03/2021: No changes to the primary teams treatment plan Plan: -DC Risperdal. Invega 3 mg a.m. Plan to transition to Sustenna. Pt/Mom aware and agree that he will need to remain on Sustenna for 4 months to be eligible to transtion to 3 month Trinza injection -Olanzapine prn -Educate, Encourage, [place] building. (2) Acute psychosis: Status: Acute Code(s): F23 - Brief psychotic disorder Greater than 50% of the session was spent on counseling and/or coordination of care Reason for contiued inpatient stay Substantial Risk for: harm to others and rapid decompensation
[2021-04-04 18:00] VITALS: BP 137/65; PULSE 107; TEMP 36.3
[2021-04-05 06:00] VITALS: BP 119/64; PULSE 62; TEMP 35.8; O2SAT 97
[2021-04-05] MEDS: Ibuprofen 600 MG TABLET PO ×2 (08:02→14:49)
[2021-04-05 16:18] VITALS: BP 119/56; PULSE 75; TEMP 36.9
--- NOTE | 2021-04-05 17:52 | HO.PSYCHPN ---
Subjective Subjective Date of Service: 04/05/21 Reason For Visit: SCHIZOPHRENIA Subjective Notes: Conditional Voluntary Healthcare Proxy: No Guardianship: Yes (mother is working on this) Medical Problems Affecting Mental Status: No Interim History: Simone is visable, quiet on the unit. He reports he feels well. He has no further injection site pain and asks if he may discharge after his second injection on 04/08. Discussed with him having another meeting with his mom to see if family is feeling comfortable with this plan Medication Compliance: Yes Side effects from medications: No Attending Groups: No Diagnostics Vital Signs (24Hr): Vital Signs - 24 hr 04/04/21 18:00 04/05/21 06:00 04/05/21 16:18 Temperature 97.4 F 96.5 F L 98.5 F Pulse Rate 107 H 62 75 Blood Pressure 137/65 119/64 119/56 L Pulse Oximetry 97 Body Mass Index 25.2 Labs Results: 03/21/21 01:50 03/21/21 01:50 Medications Medications Current Medications Generic Name Dose Route Start Last Admin Trade Name Freq PRN Reason Stop Dose Admin Acetaminophen 650 mg 03/22/21 15:10 04/01/21 18:54 Acetaminophen 325 Mg Tablet PO 650 mg Q6H PRN Administration Headache/Pain Mild Scale (1-3) Al Hydroxide/Mg Hydroxide 30 ml 03/22/21 15:10 Magnesium Hydrox/Alum Hydrox 30 Ml Oral.Susp PO Q6H PRN Heartburn/Nausea Hydroxyzine HCl 25 mg 03/22/21 15:10 Hydroxyzine Hcl 25 Mg Tablet PO BEDTIME PRN Anxiety Ibuprofen 600 mg 04/02/21 09:58 04/05/21 14:49 Ibuprofen 600 Mg Tablet PO 600 mg TIDWM PRN Administration pain Lorazepam 1 mg 03/22/21 15:29 Lorazepam 1 Mg Tablet PO Q4H PRN anxiety, agitation Magnesium Hydroxide 30 ml 03/22/21 15:10 Milk Of Magnesia 30 Ml Oral.Susp PO DAILY PRN Constipation Olanzapine 5 mg 03/22/21 15:29 Olanzapine 5 Mg Tablet PO BID PRN psychosis Paliperidone Palmitate 156 mg 04/08/21 08:00 Paliperidone Palmitate 156 Mg/Ml Syringe IM 04/08/21 08:01 ONCE ONE Trazodone HCl 50 mg 03/22/21 15:10 Trazodone Hcl 50 Mg Tablet PO BEDTIME PRN Insomnia Allergies Allergies Allergy/AdvReac Type Severity Reaction Status Date / Time No Known Allergies Allergy Verified 03/20/21 22:38 [No Known Allergies*] Assessment & Plan Assessment & Plan (1) Schizophrenia: Status: Acute Code(s): F20.9 - Schizophrenia, unspecified Assessment and Plan: Simone is a 20 yo male, with a history of schizophrenia, who has been off medications for a significant period of time, partly due to pandemic restrictions. 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 At this point the family fears him and will not allow him to return to the home unless he is well medicated. Simone reports family is angry as they were making noise while he was attempting to sleep and he responded. 03/24/21: Family meeting today. Pt to consider retraction of TDN and beginning DUONG-interested in 3 month choices. Mom will file for guardianship. Pending civil commitment filing should pt not agree to a plan of care. Accepting PO Risperdal. 03/25/21: Continue plan of care. Simone is visable in the milieu and approaches readily to ask questions. 03/26/21: Continue plan of care. Simone is approachable, responding to internal stimuli, continues to have interest and asks questions about plan of care. Mom has initiated the guardianship process. 03/29/21: no substantial change in presentation. 03/30/21: Tolerating medications. Will begin Invega Sustenna 234 mg on 03/31. Pt and mother agree. 03/31/21: Sustenna received. Tolerating dosing thus far. 04/01/21: Injection site pain-using Tylenol prn. Asking about second injection and discharge. 04/02/21: Continue plan of care. 04/03/2021: No changes to the primary teams treatment plan 04/05/21: Continue current plan of care. Plan: -DC Risperdal. Invega 3 mg a.m. Plan to transition to Sustenna. Pt/Mom aware and agree that he will need to remain on Sustenna for 4 months to be eligible to transtion to 3 month Trinza injection -Olanzapine prn -Educate, Encourage, [place] building. (2) Acute psychosis: Status: Acute Code(s): F23 - Brief psychotic disorder Greater than 50% of the session was spent on counseling and/or coordination of care Reason for contiued inpatient stay Substantial Risk for: harm to others, inability to function and rapid decompensation
[2021-04-06 06:00] VITALS: BP 140/69; PULSE 78; RESP 16; TEMP 35.8; O2SAT 98
--- NOTE | 2021-04-06 11:08 | HO.PSYCHPN ---
Subjective Subjective Date of Service: 04/06/21 Reason For Visit: SCHIZOPHRENIA Subjective Notes: Conditional Voluntary Healthcare Proxy: No Guardianship: Yes (in process) Medical Problems Affecting Mental Status: No Interim History: Invega Sustenna injection #2 due 04/08. Pt reports he is ready for this. He asks to discharge after the injection. He has accepted aftercare referrals, reports he will comply with the follow up injection and denies any SE stating site pain is resolved. Discussed with mom, Colleen and she will come in on 07/09 10am for a family meeting and to discuss out pt planning. Pt is consistent in connecting with his family, is visable on the unit, not in groups and has minimal interactions unless initiated by others. Medication Compliance: Yes Side effects from medications: No Attending Groups: No Review of Systems Psychiatric: Reports anxiety, Reports auditory hallucinations, Reports anhedonia, Reports paranoia, Reports homicidal ideation (denies) and Reports suicidal ideation (denies) Mental Status Exam Mental Status Exam Patient Appearance: Appropriate Patient Orientation: Person, Place and Time Level of Consciousness: Alert Patient Behavior: Appropriate, Guarded, Cooperative, Passive and Good Eye Contact Mood Description: Constricted Affect Description: Constricted Patient Cognition Impaired: No Ability to Follow Directions: Good Speech Pattern: Spontaneous Speech and Soft-Spoken Memory Description: Episodic Impaired Hallucinations: Auditory Delusions: Paranoid Ideation Thought Process: Distracted Thought Content: positive for Circumstantial, positive for Suicidal Ideation (denies) and positive for Homicidal Ideation (denies) Depressive Symptoms: Diff. Making Decisions, Loss of Int. in Activity and Thoughts of /Suicide (denies) Abnormal Motor Activity Signs and Symptoms: Restlessness Judgement: Fair Diagnostics Vital Signs (24Hr): Vital Signs - 24 hr 04/05/21 16:18 04/06/21 06:00 Temperature 98.5 F 96.5 F L Pulse Rate 75 78 Respiratory Rate 16 Blood Pressure 119/56 L 140/69 H Pulse Oximetry 98 Body Mass Index 25.2 Labs Results: 03/21/21 01:50 03/21/21 01:50 Medications Medications Current Medications Generic Name Dose Route Start Last Admin Trade Name Freq PRN Reason Stop Dose Admin Acetaminophen 650 mg 03/22/21 15:10 04/01/21 18:54 Acetaminophen 325 Mg Tablet PO 650 mg Q6H PRN Administration Headache/Pain Mild Scale (1-3) Al Hydroxide/Mg Hydroxide 30 ml 03/22/21 15:10 Magnesium Hydrox/Alum Hydrox 30 Ml Oral.Susp PO Q6H PRN Heartburn/Nausea Hydroxyzine HCl 25 mg 03/22/21 15:10 Hydroxyzine Hcl 25 Mg Tablet PO BEDTIME PRN Anxiety Ibuprofen 600 mg 04/02/21 09:58 04/05/21 14:49 Ibuprofen 600 Mg Tablet PO 600 mg TIDWM PRN Administration pain Lorazepam 1 mg 03/22/21 15:29 Lorazepam 1 Mg Tablet PO Q4H PRN anxiety, agitation Magnesium Hydroxide 30 ml 03/22/21 15:10 Milk Of Magnesia 30 Ml Oral.Susp PO DAILY PRN Constipation Olanzapine 5 mg 03/22/21 15:29 Olanzapine 5 Mg Tablet PO BID PRN psychosis Paliperidone Palmitate 156 mg 04/08/21 08:00 Paliperidone Palmitate 156 Mg/Ml Syringe IM 04/08/21 08:01 ONCE ONE Trazodone HCl 50 mg 03/22/21 15:10 Trazodone Hcl 50 Mg Tablet PO BEDTIME PRN Insomnia Allergies Allergies Allergy/AdvReac Type Severity Reaction Status Date / Time No Known Allergies Allergy Verified 03/20/21 22:38 [No Known Allergies*] Assessment & Plan Assessment & Plan (1) Schizophrenia: Status: Acute Code(s): F20.9 - Schizophrenia, unspecified Assessment and Plan: Simone is a 20 yo male, with a history of schizophrenia, who has been off medications for a significant period of time, partly due to pandemic restrictions. 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 At this point the family fears him and will not allow him to return to the home unless he is well medicated. Simone reports family is angry as they were making noise while he was attempting to sleep and he responded. 03/24/21: Family meeting today. Pt to consider retraction of TDN and beginning DUONG-interested in 3 month choices. Mom will file for guardianship. Pending civil commitment filing should pt not agree to a plan of care. Accepting PO Risperdal. 03/25/21: Continue plan of care. Simone is visable in the milieu and approaches readily to ask questions. 03/26/21: Continue plan of care. Simone is approachable, responding to internal stimuli, continues to have interest and asks questions about plan of care. Mom has initiated the guardianship process. 03/29/21: no substantial change in presentation. 03/30/21: Tolerating medications. Will begin Invega Sustenna 234 mg on 03/31. Pt and mother agree. 03/31/21: Sustenna received. Tolerating dosing thus far. 04/01/21: Injection site pain-using Tylenol prn. Asking about second injection and discharge. 04/02/21: Continue plan of care. 04/03/2021: No changes to the primary teams treatment plan 04/05/21: Continue current plan of care. 04/06/21: Pt asks for discharge after injection on 04/08. Family meeting planned for 10am 04/08. Mother is still working on guardianship. Will work with discharge planning in the family meeting. Pt has accepted a referral to [facility] for both therapy and medications. Plan: -DC Risperdal. Invega 3 mg a.m. Plan to transition to Sustenna. Pt/Mom aware and agree that he will need to remain on Sustenna for 4 months to be eligible to transtion to 3 month Trinza injection -Olanzapine prn -Educate, Encourage, [place] building. (2) Acute psychosis: Status: Acute Code(s): F23 - Brief psychotic disorder Greater than 50% of the session was spent on counseling and/or coordination of care Reason for contiued inpatient stay Substantial Risk for: harm to self, harm to others, inability to function and rapid decompensation
[2021-04-06 22:06] VITALS: BP 135/78; PULSE 99; TEMP 36.4
[2021-04-07 06:44] VITALS: BP 127/69; PULSE 62; TEMP 36.2; O2SAT 98
--- NOTE | 2021-04-07 17:23 | P.PNPSI_ITS ---
Subjective Subjective Date of Service: 04/07/21 Reason For Visit: SCHIZOPHRENIA Review of Systems Reports he is prepared to meet with mother on 04/08 and negotiate a plan to safely return home. He is aware that family is concerned about compliance, thus their efforts to pursue guardianship. States that he is experiencing no adverse effects from Invega. He is aware that his second injection will be on 04/08/21. Review of Systems Reports behavioral changes Psychiatric: Reports behavioral changes, Reports difficulty concentrating, Reports auditory hallucinations, Reports homicidal ideation (denies) and Reports suicidal ideation (denies) Mental Status Exam Mental Status Exam Patient Appearance: Appropriate Patient Orientation: Person, Place and Situation Level of Consciousness: Alert Patient Behavior: Talkative, Cooperative, Distractible and Good Eye Contact Mood Description: Constricted Affect Description: Constricted Patient Cognition Impaired: No Ability to Follow Directions: Good Speech Pattern: Spontaneous Speech Memory Description: Episodic Impaired Hallucinations: Auditory Delusions: Not Present Thought Process: Goal Oriented Thought Content: positive for [place], positive for Circumstantial and positive for Goal Oriented Depressive Symptoms: Thoughts of /Suicide (denies) and Difficulty C oncentrating Judgement: Fair Diagnostics Vital Signs (24Hr): Vital Signs - 24 hr 04/06/21 22:06 04/07/21 06:44 Temperature 97.6 F 97.1 F Pulse Rate 99 62 Blood Pressure 135/78 127/69 Pulse Oximetry 98 Body Mass Index 25.2 Labs Results: 03/21/21 01:50 03/21/21 01:50 Medications Medications Current Medications Generic Name Dose Route Start Last Admin Trade Name Freq PRN Reason Stop Dose Admin Acetaminophen 650 mg 03/22/21 15:10 04/01/21 18:54 Acetaminophen 325 Mg Tablet PO 650 mg Q6H PRN Administration Headache/Pain Mild Scale (1-3) Al Hydroxide/Mg Hydroxide 30 ml 03/22/21 15:10 Magnesium Hydrox/Alum Hydrox 30 Ml Oral.Susp PO Q6H PRN Heartburn/Nausea Hydroxyzine HCl 25 mg 03/22/21 15:10 Hydroxyzine Hcl 25 Mg Tablet PO BEDTIME PRN Anxiety Ibuprofen 600 mg 04/02/21 09:58 04/05/21 14:49 Ibuprofen 600 Mg Tablet PO 600 mg TIDWM PRN Administration pain Lorazepam 1 mg 03/22/21 15:29 Lorazepam 1 Mg Tablet PO Q4H PRN anxiety, agitation Magnesium Hydroxide 30 ml 03/22/21 15:10 Milk Of Magnesia 30 Ml Oral.Susp PO DAILY PRN Constipation Olanzapine 5 mg 03/22/21 15:29 Olanzapine 5 Mg Tablet PO BID PRN psychosis Paliperidone Palmitate 156 mg 04/08/21 08:00 Paliperidone Palmitate 156 Mg/Ml Syringe IM 04/08/21 08:01 ONCE ONE Trazodone HCl 50 mg 03/22/21 15:10 Trazodone Hcl 50 Mg Tablet PO BEDTIME PRN Insomnia Allergies Allergies Allergy/AdvReac Type Severity Reaction Status Date / Time No Known Allergies Allergy Verified 03/20/21 22:38 [No Known Allergies*] Assessment & Plan Assessment & Plan (1) Schizophrenia: Status: Acute Code(s): F20.9 - Schizophrenia, unspecified Assessment and Plan: Simone is a 20 yo male, with a history of schizophrenia, who has been off medications for a significant period of time, partly due to pandemic restrictions. His mother, Colleen reports a significant behavioral change [employer] where he has become more agitated, aggressive, violent and destructive. At this point the family fears him and will not allow him to return to the home unless he is well medicated. Simone reports family is angry as they were making noise while he was attempting to sleep and he responded. 03/24/21: Family meeting today. Pt to consider retraction of TDN and beginning DUONG-interested in 3 month choices. Mom will file for guardianship. Pending civil commitment filing should pt not agree to a plan of care. Accepting PO Risperdal. 03/25/21: Continue plan of care. Simone is visable in the milieu and approaches readily to ask questions. 03/26/21: Continue plan of care. Simone is approachable, responding to internal stimuli, continues to have interest and asks questions about plan of care. Mom has initiated the guardianship process. 03/29/21: no substantial change in presentation. 03/30/21: Tolerating medications. Will begin Invega Sustenna 234 mg on 03/31. Pt and mother agree. 03/31/21: Sustenna received. Tolerating dosing thus far. 04/01/21: Injection site pain-using Tylenol prn. Asking about second injection and discharge. 04/02/21: Continue plan of care. 04/03/2021: No changes to the primary teams treatment plan 04/05/21: Continue current plan of care. 04/06/21: Pt asks for discharge after injection on 04/08. Family meeting planned for 10am 04/08. Mother is still working on guardianship. Will work with discharge planning in the family meeting. Pt has accepted a referral to [facility] for both therapy and medications. 04/07/21: Continue current plan. Family meeting 04/08/21. Plan: -DC Risperdal. Invega 3 mg a.m. Plan to transition to Sustenna. Pt/Mom aware and agree that he will need to remain on Sustenna for 4 months to be eligible to tra nstion to 3 month Trinza injection -Olanzapine prn -Educate, Encourage, [place] building. (2) Acute psychosis: Status: Acute Code(s): F23 - Brief psychotic disorder Greater than 50% of the session was spent on counseling and/or coordination of care Patient educated on: medication risk/benefits and therapeutic strategies Informed Consent: further education needed Reason for contiued inpatient stay Substantial Risk for: harm to others, inability to function and rapid decompensa tion
[2021-04-07 18:00] VITALS: BP 128/74; PULSE 74; TEMP 36.2; O2SAT 99
[2021-04-08 06:27] VITALS: BP 128/60; PULSE 94; RESP 14; TEMP 36.1; O2SAT 96
[2021-04-08] MEDS: Paliperidone Palmitate 156 MG/ML SYRINGE IM (10:39)
--- NOTE | 2021-04-08 10:42 | P.DS_ITS ---
DS: Providers Provider Date of Service: 04/08/21 Date of admission: 03/22/21 15:10 Primary care physician: Marissa Mae [facility] Admitting clinician: Selina Dudley Attending physician on admission: Rick Sharma Attending physician on discharge: Rick Sharma Discharging clinician: Selina Dduley DS: Diagnosis Discharge Diagnosis (1) Schizophrenia: Start date: 03/22/21 Status: Acute (2) Acute psychosis: Start date: 03/22/21 Status: Resolved DS: Medications Discharge Medications Home Medications: Previous Rx's Medication Instructions Recorded paliperidone palmitate 234 mg/1.5 234 mg IM QMONTH #1.5 ml 04/08/21 mL intramuscular syringe (Invega Sustenna) Mental Status Exam Mental Status Exam Patient Appearance: Appropriate Patient Orientation: Person, Place and Situation Level of Consciousness: Alert Patient Behavior: Talkative, Cooperative, Distractible and Good Eye Contact Mood Description: Constricted Affect Description: Constricted Patient Cognition Impaired: No Ability to Follow Directions: Good Speech Pattern: Spontaneous Speech Memory Description: Episodic Impaired Hallucinations: Auditory Delusions: Not Present Thought Process: Goal Oriented Thought Content: positive for [place], positive for Circumstantial and positive for Goal Oriented Depressive Symptoms: Thoughts of /Suicide (denies) and Difficulty Concentrating Judgement: Fair DS: Summary Hospital Course Hospital Course: Simone was admitted on a conditional voluntary basis. Both pt and mother report a history of schizophrenia with treatment success with Invega Sustenna, however, Simone refused his injections and experienced an increase in psychosis. Mother decided to begin a guardianship process to assist Simone in treatment compliance and this continued after discharge. (Guardianship was approved on 04/20/21). Discussed with Simone a return to his regime which had worked and he agreed. Invega was tolerated and Simone remained on the unit for his first two initial injections. He experienced no behavioral issues on the unit, however was reserved and isolated. He did not attend groups, stating he was not interested, however, he was visable in milieu, playing ball with other patients and with some interactions with peers and team. Time spent discussing smoking cessation with patient: more than 10 minutes Status at Discharge Cognitive/behavioral status at discharge: non-psychotic, non-suicidal, prepared to return home, agrees to continue DUONG-[facility] will assist. Functional status at discharge: independent ambulation Overall status at discharge: patient is back to baseline Time Spent with Patient Time attestation: Total time spent providing and/or coordinating discharge services:35 Time spent: Greater than 30 minutes Discharge Plan Discharge Anticipated Discharge Date/Time: 04/08/21 18:00 Patient Disposition: Home, Self-Care Discharge Diagnosis: Schizophrenia Referrals: [facility] [Other] - 05/07/21 (FAX [phone] We have set up the Visiting Nurses from [facility] to assist you with getting your injectable medication which will be due approximately May 07 to May 10. The RN will call you to set up a time to come to visit. ) Gisel White (therapy intake) [Other] - 04/14/21 10:00 am (Telehealth appointment - she will call you. You will be receiving intake paperwork at the email address provided, please complete and send back the paperwork prior to your appointment) Eduarda Torres (psychiatrist) [Other] - 05/03/21 1:40 pm (Telehealth appointment - via video chat. Instructions will be sent to your email) Eduarda Torres (psychiatrist) [Other] - 06/03/21 10:40 am (Telehealth appointment - via video chat. Instructions will be sent to your email) Marissa Mae FNP-GHANSHYAM [Nurse Practitioner] - 04/14/21 4:00 pm (IN OFFICE) Discharge Medications: New Invega Sustenna 234 mg/1.5 mL syringe 234 mg IM QMONTH Qty: 1.5 RF: 0 Discharge Orders: Discharge Order (Routine); Ordered 04/08/21 Ordered By: Selina Dudley Diet: advance to usual diet Activity on Discharge: As tolerated Stand Alone Forms: Patient Portal Discharge page, Community Support Care Plan Goals: Stabilization of mood, thought process and behavior Health Concerns: Schizophrenia Plan of Treatment: Take medications as directed. Your next injection will be due on 05/09/21. Attend all scheduled appointments Assessment: Alert, oriented, denies perceptual alterations, denies SI, HI. Mood is stable. Pt is smiling, happy to discharge to have family take him out to dinner. Discharge Date/Time: 04/08/21 14:32
== END 2021-04-08 14:32 | disposition home or self-care (01) | DRG 750 ==
LOC: HO.ED 23:01 → HO.PM5 03-22 15:18
PROVIDERS: Emergency Medicine Emergency Medical Services; Admitting Provider Clinical Nurse Specialist Psychiatric/Mental Health, Adult; Emergency Provider Emergency Medicine; Visit Provider Clinical Nurse Specialist Psychiatric/Mental Health, Adult
DX: F20.9 Schizophrenia, unspecified (principal); Z20.822 Contact with and (suspected) exposure to COVID-19
CPT/HCPCS: 36415; 80053; 80061; 80307; 81003; 82607; 82746; 83036; 83735; 84439; 84443; 85025; 87635; 93005; 99285; J2426

== ENCOUNTER 2022-05-11 13:08 | Outpatient (REF) | payer MEDICAID, SELFPAY ==
[2022-05-11 14:20] LABS: Estimated Average Glucose 100 mg/dL; Hemoglobin A1c % 5.1 %
[2022-05-11 14:59] LABS: Cholesterol 204 mg/dL; HDL Cholesterol 51 mg/dL; LDL Cholesterol Calculated 132 mg/dl; Triglycerides 109 mg/dL
== END 2022-05-11 13:09 | disposition home or self-care (01) ==
LOC: HO.LAB 13:08
PROVIDERS: PCP Nurse Practitioner Family; Visit Provider Registered Nurse
DX: Z72.89 Other problems related to lifestyle (principal)
CPT/HCPCS: 36415; 80061; 83036

== ENCOUNTER 2022-12-22 15:10 | Outpatient (REF) | payer MEDICAID, SELFPAY ==
[2022-12-22 15:22] LABS: MANUAL DIFF FLAG NO
[2022-12-22 15:54] LABS: Basophils Absolute Auto 0.1 X10*3/uL (0.0-0.2); Basophils Percent Auto 0.6 % (0-2); Eosinophils Absolute Auto 0.1 X10*3/uL (0.0-0.4); Eosinophils Percent Auto 0.4 % (0-4); Hematocrit 44.5 % (42.0-52.0); Hemoglobin 15.3 g/dl (14.0-18.0); Imm Gran Abs Auto 0.05 X10*3/uL (0.00-0.03); Imm Gran Pct Auto 0.4 % (0.0-0.4); Lymphocytes Absolute Auto 3.2 X10*3/uL (1.2-4.9); Lymphocytes Percent Auto 27.3 % (20-40); Mean Corpuscular HGB Conc 34.4 g/dl (31.0-36.0); Mean Corpuscular Hemoglobin 28.5 pg (27.0-33.0); Mean Platelet Volume 11.2 fL (9.4-12.4); Monocytes Absolute Auto 0.7 X10*3/uL (0.1-1.2); Monocytes Percent Auto 5.9 % (2-11); Neutrophils Absolute Auto 7.5 x10*3/uL (2.0-8.3); Neutrophils Percent Auto 65.4 % (45-73); Platelet Count 324 X10*3/uL (160-400); Red Blood Count 5.36 X10*6/uL (4.60-5.80); Red Cell Distribution Width 12.2 % (11.0-16.0); White Blood Count 11.5 X10*3/uL (4.8-10.8)
[2022-12-22 16:01] LABS: Estimated Average Glucose 100 mg/dL; Hemoglobin A1c % 5.1 %
[2022-12-22 16:26] LABS: Cholesterol 188 mg/dL; HDL Cholesterol 42 mg/dL; LDL Cholesterol Calculated 91 mg/dl; Triglycerides 278 mg/dL
== END 2022-12-22 15:11 | disposition home or self-care (01) ==
LOC: HO.LAB 15:10
PROVIDERS: Visit Provider Registered Nurse
DX: F20.9 Schizophrenia, unspecified (principal); Z79.899 Other long term (current) drug therapy
CPT/HCPCS: 36415; 80061; 83036; 85025

== ENCOUNTER 2024-08-19 09:17 | Outpatient (REF) | payer OTHER, SELFPAY ==
[2024-08-19 10:18] LABS: Estimated Average Glucose 111 mg/dL; Hemoglobin A1C 141.0477 umol/L; Hemoglobin A1c % 5.5 % (<6.0); Total Hemoglobin (HGBA1C) 3799.4282 umol/L
[2024-08-19 11:28] LABS: Alanine Aminotransferase 56 U/L (0-40); Albumin Level 4.5 g/dL (3.5-5.0); Alkaline Phosphatase 87 U/L (39-117); Anion Gap 10 (12-20); Aspartate Amino Transferase 29 U/L (5-37); Bilirubin Total 0.3 mg/dL (0.0-1.0); Blood Urea Nitrogen 9 mg/dL (9-16); Calcium 9.9 mg/dL (8.4-10.2); Carbon Dioxide 29 mmol/L (22-29); Chloride 101 mmol/L (96-108); Cholesterol 193 mg/dL (<200); Estimated Glomerular Filt Rate > 60; Glucose Fasting 101 mg/dL (60-99); HDL Cholesterol 44 mg/dL (>40); LDL Cholesterol Calculated 109 mg/dL (<100); Potassium 4.4 mmol/L (3.3-5.1); Sodium 136 mmol/L (135-145); Total Protein 7.5 g/dL (6.5-8.0); Triglycerides 202 mg/dL (<150)
== END 2024-08-19 09:18 | disposition home or self-care (01) ==
LOC: HO.LAB 09:17
PROVIDERS: Visit Provider Registered Nurse
DX: Z79.899 Other long term (current) drug therapy (principal)
CPT/HCPCS: 36415; 80053; 80061; 83036